=== PATIENT | male | born 1960 | race Caucasian/White ===

== ENCOUNTER 2016-04-27 21:27 | Emergency (ER) | payer MEDICAID ==
[2016-04-27 21:51] VITALS: BP 175/105
--- NOTE | 2016-04-27 22:10 | EDM.PDOC ---
ED HPI GENERAL MEDICAL PROBLEM - General Chief Complaint: General Stated Complaint: S/P SURGERY-CONSTIPATION Time Seen by Provider: 04/27/16 21:30 Source of Information: Reports: Patient History Limitations: Reports: No limitations - History of Present Illness INITIAL COMMENTS - FREE TEXT/NARRATIVE: 56 YO WM presents to ER s/p inguinal hernia repair 4 days ago complaining of constipation. Pt reports he has had a BM 2 days ago (small) and has been passing gas, but today after eating lunch he developed an urge to move his bowels and was unable. Pt went to clinic and was given doculax and colace and instructed to drink warm prune juice. Pt came to ER tonight stating he still can 't move his bowels and has noticed some hesitancy with urination. Pt denies any dysuria or frequency. Pt denies any abdominal pain at this time. Onset: gradual Duration: Day(s): (4) Location: Reports: abdomen Associated Symptoms: Reports: no other symptoms. Denies: chest pain, fever/ chills, loss of appetite, nausea/vomiting, shortness of breath Abdomen Pain Score (Numeric/FACES): 3 - Related Data Home Meds: Home Meds Polyethylene Glycol 3350 [MiraLAX] 17 gm PO BID 7 Days 04/27/16 [Rx] Past Medical History HEENT History: Reports: Impaired vision Cardiovascular History: Reports: Hypertension Genitourinary History: Reports: Retention, urinary - Past Surgical History GI Surgical History: Reports: Appendectomy, Hernia repair/other Other GI Surgeries/Procedures: umbilical hernia repair 04/23/16 Social & Family History - Tobacco Use Smoking Status *Q: Never Smoker Second Hand Smoke Exposure: No - Caffeine Use Caffeine Use: Reports: Soda - Alcohol Use Days Per Week of Alcohol Use: 7 Number of Drinks Per Day: 2 Total Drinks Per Week: 14 - Recreational Drug Use Recreational Drug Use: No ED ROS GENERAL - Review of Systems Review Of Systems: See Below Constitutional: Reports: no symptoms HEENT: Reports: No symptoms Respiratory: Reports: no symptoms Cardiovascular: Reports: No symptoms Endocrine: Reports: no symptoms GI/Abdominal: Reports: Constipation : Reports: other Skin: Reports: no symptoms Neurological: Reports: no symptoms Psychiatric: Reports: No symptoms Hematologic/Lymphatic: Reports: no symptoms Immunologic: Reports: no symptoms ED EXAM, GENERAL - Physical Exam Exam: See Below Exam Limited By: No limitations General Appearance: alert, WD/WN, no apparent distress Head: atraumatic, normocephalic Neck: normal inspection, supple, non-tender, full range of motion Respiratory/Chest: no respiratory distress, lungs clear, normal breath sounds, no accessory muscle use, chest non-tender Cardiovascular: normal peripheral pulses, regular rate, rhythm, no edema, no gallop, no JVD, no murmur, no rub GI/Abdominal: soft, distended, tender (mild tenderness at surgical site) Back Exam: normal inspection, full range of motion, NT Extremities: normal inspection, normal range of motion, non-tender, normal capillary refill, no pedal edema Neurological: alert, oriented, CN II-XII intact, normal cognition, normal gait, normal reflexes, no motor/sensory deficits Psychiatric: normal affect, normal mood Skin Exam: Warm, Dry, Intact, Normal color, No rash Lymphatic: no adenopathy Course - Vital Signs Last Recorded V/S: Last Vital Signs Temp 36.9 C 04/27/16 21:44 Pulse 116 H 04/27/16 21:44 Resp 16 04/27/16 21:44 BP 175/105 H 04/27/16 21:44 Pulse Ox 95 04/27/16 21:44 - Orders/Labs/Meds Orders: Active Orders 24 hr Category Date Time Status Bladder Scan [RC] ONETIME Care 04/27/16 22:02 Ordered Insert Urinary Catheter [OM.PC] Q24H Care 04/27/16 22:45 Ordered Urinary Catheter Assessment [RC] ASDIRECTED Care 04/27/16 22:33 Ordered KUB [Abdomen 1V Flat] [CR] Stat Exams 04/27/16 22:10 Ordered URINALYSIS W/MICROSCOPIC [UA W/MICROSCOPIC] [URIN] Stat Lab 04/27/16 22:33 Uncollected Meds: Medications Discontinued Medications Generic Name Dose Route Start Last Admin Trade Name Freq PRN Reason Stop Dose Admin Lidocaine HCl Confirm 04/27/16 22:20 Xylocaine 2% Jelly Administered 04/27/16 22:21 Dose 5 ml .ROUTE .STK-MED ONE - Radiology Interpretation Free Text/Narrative:: KUB- nonspecific bowel gas pattern bladder scan- >700cc post void residual Departure - Departure Time of Disposition: 22:34 Disposition: Home, Self-Care 01 Condition: good Clinical Impression: Postoperative urinary retention Constipation Qualifiers: Constipation type: slow transit constipation Qualified Code(s): K59.01 - Slow transit constipation Prescriptions: Polyethylene Glycol 3350 [MiraLAX] 17 gm PO BID 7 Days Instructions: Acute Urinary Retention, Male, Constipation, Adult Referrals: Connie Wilson PA-C [Primary Care Provider] - Forms: ED Department Discharge - My Orders Last 24 Hours: My Active Orders 04/27/16 22:02 Bladder Scan [RC] ONETIME 04/27/16 22:10 KUB [Abdomen 1V Flat] [CR] Stat 04/27/16 22:33 Urinary Catheter Assessment [RC] ASDIRECTED URINALYSIS W/MICROSCOPIC [UA W/MICROSCOPIC] [URIN] Stat 04/27/16 22:45 Insert Urinary Catheter [OM.PC] Q24H - Assessment/Plan Last 24 Hours: My Active Orders 04/27/16 22:02 Bladder Scan [RC] ONETIME 04/27/16 22:10 KUB [Abdomen 1V Flat] [CR] Stat 04/27/16 22:33 Urinary Catheter Assessment [RC] ASDIRECTED URINALYSIS W/MICROSCOPIC [UA W/MICROSCOPIC] [URIN] Stat 04/27/16 22:45 Insert Urinary Catheter [OM.PC] Q24H Assessment:: 1. urinary retention- >700cc urine as post void residual 2. constipation- KUB- nonspecific bowel gas pattern Plan: 1. keen catheter 2. miralax for consipation 3. follow up at [facility] tomorrow at 2pm as scheduled for keen cath removal/management 4. will check a UA to rule out infectious process
[2016-04-27] MEDS ORDERED: Lidocaine 2% Jelly 5 ML Tube ONE (22:20)
== END 2016-04-27 22:35 | disposition home or self-care (01) ==
LOC: KA.ED 21:27
DX: K59.01 Slow transit constipation (principal); N99.89 Other postprocedural complications and disorders of genitourinary system; R33.9 Retention of urine, unspecified; I10 Essential (primary) hypertension; Z90.49 Acquired absence of other specified parts of digestive tract; Z98.890 Other specified postprocedural states
CPT/HCPCS: 51798; 74000; 81001; 99283

== ENCOUNTER 2019-01-01 17:27 | Emergency (ER) | payer MEDICAID ==
[2019-01-01] MEDS: Nitroglycerin 0.4 MG Tab.SL SL ONE (17:35)
[2019-01-01] MEDS: Aspirin 81 MG Tab.Chew PO ONE (17:35)
--- NOTE | 2019-01-01 18:02 | EDM.PDOC ---
<Adrian White - Last Filed: 01/01/19 20:17> ED HPI GENERAL MEDICAL PROBLEM - General Chief Complaint: Cardiovascular Problem Stated Complaint: CHEST PAIN Time Seen by Provider: 01/01/19 17:28 Source of Information: Reports: Patient History Limitations: Reports: No Limitations - History of Present Illness INITIAL COMMENTS - FREE TEXT/NARRATIVE: 58-year-old male presents to the emergency room brought in by his mother with complaints of chest pain. Patient reports pain started approximately at 1430 this afternoon he describes the pain as pressure over his chest. He rates it a 5 out of 10 in severity. He denies any radiation to his neck, shoulder, arm, back, jaw, or abdomen. He has no nausea or vomiting. He's not been sweaty or diaphoretic. He denies palpitations or irregular heartbeat. Reports the pressure in his chest wall wax and wane but does not go away. He has not taken anything for it at the time of his onset. He does have a history of high blood pressure and takes blood pressure medication for this. He denies high cholesterol. He denies prior history of heart attack. He denies stroke history. He denies diabetes. He denies shortness of breath dyspnea on exertion, or PND. He has never had a history of chest pain prior to today. He does not recall having a stress test in the past. He was given a 325 mg aspirin to chew upon arrival in 0.4 mg sublingual nitroglycerin. His chest pain improved after the nitroglycerin. He rates his chest pain a 3 out of 10. Onset: Today, Sudden Onset Date: 01/01/19 Onset Time: 14:30 Duration: Hour(s):, Waxing/Waning Location: Reports: Chest Quality: Reports: Pressure Severity: Moderate Improves with: Reports: None Worsens with: Reports: None Associated Symptoms: Reports: Chest Pain. Denies: Diaphoresis, Headaches, Nausea/Vomiting, Shortness of Breath, Syncope, Weakness Treatments HIDE HANDLER: Reports: Other Medication(s) (Home blood pressure medication) Middle Chest Pain Score (Numeric/FACES): 5 - Related Data Allergies Allergy/AdvReac Type Severity Reaction Status Date / Time No Known Allergies Allergy Verified 04/28/16 09:37 Home Meds: Home Meds Losartan Potassium 75 mg PO DAILY 01/01/19 [History] Omeprazole 40 mg PO DAILY PRN 01/01/19 [History] Past Medical History HEENT History: Reports: Impaired Vision Cardiovascular History: Reports: Hypertension Genitourinary History: Reports: Retention, Urinary - Past Surgical History GI Surgical History: Reports: Appendectomy, Hernia Repair/Other Social & Family History - Caffeine Use Caffeine Use: Reports: Soda ED ROS GENERAL - Review of Systems Review Of Systems: See Below Constitutional: Denies: Weakness, Diaphoresis HEENT: Reports: No Symptoms Respiratory: Denies: Shortness of Breath, Pleuritic Chest Pain, Cough Cardiovascular: Reports: Chest Pain, Blood Pressure Problem. Denies: Dyspnea on Exertion, Edema, Lightheadedness, Orthopnea, Palpitations, PND, Syncope Endocrine: Reports: No Symptoms GI/Abdominal: Reports: No Symptoms : Reports: No Symptoms Musculoskeletal: Denies: Neck Pain, Shoulder Pain, Arm Pain, Back Pain Skin: Denies: Diaphoresis Neurological: Denies: Headache, Numbness, Paresthesia, Pre-Existing Deficit, Seizure, Syncope, Tingling, Tremors, Trouble Speaking, Difficulty Walking, Change in Speech, Gait Disturbance Psychiatric: Denies: Agitation, Anxiety Hematologic/Lymphatic: Reports: No Symptoms Immunologic: Reports: No Symptoms ED EXAM, GENERAL - Physical Exam Exam Limited By: No Limitations General Appearance: Alert, No Apparent Distress, Obese Eye Exam: Bilateral Eye: EOMI, PERRL Ears: Normal TMs Nose: Normal Inspection Throat/Mouth: Normal Oropharynx, Normal Voice, No Airway Compromise Head: Atraumatic, Normocephalic Neck: Normal Inspection, Supple, Non-Tender, Full Range of Motion. No: Carotid Bruit, Lymphadenopathy (L), Lymphadenopathy (R) Respiratory/Chest: No Respiratory Distress, Lungs Clear, Normal Breath Sounds, No Accessory Muscle Use, Chest Non-Tender Cardiovascular: Normal Peripheral Pulses, Regular Rate, Rhythm, No Edema, No JVD , No Murmur Peripheral Pulses: 2+: Carotid (L), Carotid (R), Radial (L), Radial (R), Dorsalis Pedis (L), Dorsalis Pedis (R) GI/Abdominal: Normal Bowel Sounds, Soft, Non-Tender, No Abnormal Bruit, Other ( Obese abdomen) Back Exam: Normal Inspection, Full Range of Motion Extremities: Normal Inspection, Normal Range of Motion, Non-Tender, No Pedal Edema, Normal Capillary Refill Neurological: Alert, Oriented, No Motor/Sensory Deficits Psychiatric: Normal Affect, Normal Mood Skin Exam: Warm, Dry, Intact, Normal Color, No Rash. No: Diaphoretic Lymphatic: No Adenopathy EKG INTERPRETATION EKG Date: 01/01/19 Time: 17:29 Rhythm: Other (First-degree AV block) Rate (Beats/Min): 79 [place]: Normal P-Wave: Present QRS: Normal QT: Normal Comparison: NA - No Prior EKG EKG Interpretation Comments: Sinus rhythm with first-degree AV block Inferior infarct age undetermined abnormal ECG Course - Vital Signs Last Recorded V/S: Last Vital Signs Temp 36.7 C 01/01/19 17:35 Pulse 72 01/01/19 20:00 Resp 17 01/01/19 17:35 BP 128/72 01/01/19 20:00 Pulse Ox 98 01/01/19 17:35 - Orders/Labs/Meds Orders: Active Orders 24 hr Category Date Time Status EKG Documentation Completion [RC] ASDIRECTED Care 01/01/19 19:56 Active TROPONIN I [CHEM] Timed Lab 01/01/19 18:25 Received Sodium Chloride 0.9% [Normal Saline] 1,000 ml Med 01/01/19 20:00 Active IV ASDIRECTED EKG 12 Lead [EK] Routine Ther 01/01/19 20:30 Ordered Medication Orders Sodium Chloride (Normal Saline) 1,000 mls @ 150 mls/hr IV ASDIRECTED YFN Last Admin: 01/01/19 20:07 Dose: 150 mls/hr Labs: Laboratory Tests 01/01/19 01/01/19 Range/Units 18:20 18:47 WBC 10.37 H (5.00-10.00) 10^3/uL RBC 4.84 (4.50-6.00) 10^6/uL Hgb 15.9 (13.0-17.0) g/dL Hct 43.4 (40.0-52.0) % MCV 89.7 (82.0-92.0) fL MCH 32.9 H (27.0-31.0) pg MCHC 36.6 H (32.0-36.0) g/dL RDW 12.3 (11.5-14.5) % Plt Count 276 (150-400) 10^3/uL MPV 9.1 (7.4-10.4) fL Immature Gran % (Auto) 0.5 (0.0-5.0) % Neut % (Auto) 75.5 H (50.0-70.0) % Lymph % (Auto) 14.2 L (20.0-40.0) % [place] % (Auto) 7.3 (2.0-8.0) % Eos % (Auto) 2.1 (1.0-3.0) % Baso % (Auto) 0.4 (0.0-1.0) % Immature Gran # (Auto) 0.05 (0.00-0.50) 10^3/uL Neut # (Auto) 7.83 H (2.50-7.00) 10^3/uL Lymph # (Auto) 1.47 (1.00-4.00) 10^3/uL [place] # (Auto) 0.76 (0.10-0.80) 10^3/uL Eos # (Auto) 0.22 (0.10-0.30) 10^3/uL Baso # (Auto) 0.04 (0.00-0.10) 10^3/uL Sodium 141 (136-145) mmol/L Potassium 3.7 (3.3-5.3) mmol/L Chloride 105 (98-115) mmol/L Carbon Dioxide 23.0 (21.0-32.0) mmol/L Anion Gap 16.7 H (5-15) mmol/L BUN 13 (6-25) mg/dL Creatinine 0.96 (0.51-1.17) mg/dL Est Cr Clr Drug Dosing 84.49 mL/min Estimated GFR (MDRD) > 60 mL/min Glucose 97 (75 - 99) mg/dL Calcium 9.9 (8.7-10.3) mg/dL Creatine Kinase 96 (26-276) U/L CK-MB (CK-2) 0.90 (0.00-4.30) ng/mL Troponin I 0.08 H* (0.00-0.070) ng/mL Meds: Medications Generic Name Dose Route Start Last Admin Trade Name Freq PRN Reason Stop Dose Admin Sodium Chloride 1,000 mls @ 150 mls/hr 01/01/19 20:00 01/01/19 20:07 Normal Saline IV 150 mls/hr ASDIRECTED YFN Administration Discontinued Medications Generic Name Dose Route Start Last Admin Trade Name Desiree JACKSONN Reason Stop Dose Admin Aspirin Confirm 01/01/19 17:32 01/01/19 18:16 Aspirin Administered 01/01/19 17:33 Not Given Dose 324 mg .ROUTE .STK-MED ONE Aspirin 324 mg 01/01/19 18:11 01/01/19 17:35 Aspirin PO 01/01/19 18:12 324 mg ONETIME ONE Administration Nitroglycerin Confirm 01/01/19 17:34 01/01/19 18:16 Nitrostat Administered 01/01/19 17:35 Not Given Dose 0.4 mg .ROUTE .STK-MED ONE Nitroglycerin 0.4 mg 01/01/19 17:36 01/01/19 17:35 Nitrostat SL 01/01/19 17:37 0.4 mg ONETIME ONE Administration - Re-Assessments/Exams Free Text/Narrative Re-Assessment/Exam: 01/01/19 18:11 Chest pain upon arrival was 5 out of 10 and describes as pressure. Patient was given 0.4 mg sublingual nitroglycerin and now his pain as a 3 out of 10. Free Text/Narrative Re-Assessment/Exam: 01/01/19 18:14 She now reports that his pain is down to a 1 out of 10. Free Text/Narrative Re-Assessment/Exam: 01/01/19 19:59 Discussed the findings with cardiology at [facility]. We'll plan on repeating his troponin at 8:30 as well as a new EKG. If troponin is elevated or plan on transferring the patient to [facility]. Departure - Departure Disposition: DC/Tfer to [facility] 02 Clinical Impression: Angina pectoris syndrome Referrals: Chet Merritt NP [Primary Care Provider] - Forms: ED Department Discharge, Interfacility Transfer EMTALA - Assessment/Plan Assessment:: Angina pectoris Plan: Repeat troponin at 8:30 Repeat EKG at 8:30. <Faraz Scott - Last Filed: 01/01/19 21:21> ED EXAM, GENERAL - Physical Exam Exam: See Below Exam Limited By: No Limitations General Appearance: Alert, WD/WN, No Apparent Distress Departure - Departure Time of Disposition: 21:19 Reason for Transfer *Q: Other Condition: Fair - Assessment/Plan Plan: transfer to [facility]- patient request- stable angina- Dr Murphy accepting
[2019-01-01] MEDS: Aspirin 81 MG Tab.Chew ONE (18:16)
[2019-01-01] MEDS: Nitroglycerin 0.4 MG Tab.SL ONE (18:16)
[2019-01-01 19:01] LABS: ANION GAP 16.7 mmol/L (5-15); CHLORIDE,CL 105 mmol/L (98-115); SODIUM,NA 141 mmol/L (136-145)
--- NOTE | 2019-01-01 19:25 | CR ---
[id number] RAD/RAD Chest PA or AP 1V EXAM: SINGLE VIEW CHEST. INDICATION: CHEST PAIN COMPARISON: NO PREVIOUS SIMILAR EXAM IS AVAILABLE FINDINGS: The lungs are clear The cardiomediastinal contour is mildly prominent IMPRESSION: NO PNEUMONIA OR EDEMA EARLY CARDIOMEGALY QUESTION OF AIR TRAPPING Enrique Oliva MD 01/01/19 1923 Thank you for allowing us to participate in the care of your patient.
[2019-01-01] MEDS: Sodium Chloride 0.9% 1,000 ML IV SCH (20:07)
[2019-01-01 20:18] VITALS: PULSE 72
[2019-01-01 21:09] VITALS: BP 135/68
== END 2019-01-01 22:00 ==
LOC: KA.ED 17:27
DX: I20.9 Angina pectoris, unspecified (principal); I10 Essential (primary) hypertension; Z79.899 Other long term (current) drug therapy
CPT/HCPCS: 36415; 71045; 80048; 82550; 82553; 84484; 85025; 93005; 99285-25; A9270-GY; J7030

== ENCOUNTER 2019-12-28 17:16 | Inpatient (IN) | payer MEDICAID ==
[2019-12-28] MEDS ORDERED: Sodium Chloride 0.9% 1,000 ML IV ONE ×2 (17:24→20:08)
[2019-12-28] MEDS ORDERED: Sodium Chloride 0.9% 10 ML Syringe FLUSH PRN ×2 (17:24→23:17)
[2019-12-28] MEDS ORDERED: Aspirin 81 MG Tab.Chew PO ONE (17:24)
[2019-12-28] MEDS ORDERED: Aspirin 81 MG Tab.Chew ONE (17:24)
[2019-12-28] MEDS ORDERED: Nitroglycerin 0.4 MG Tab.SL SL ONE ×2 (17:28→19:52)
[2019-12-28] MEDS ORDERED: Morphine 4 MG/ML Syringe IVPUSH ONE (17:28)
--- NOTE | 2019-12-28 17:28 | EDM.PDOC ---
ED HPI GENERAL MEDICAL PROBLEM - General Time Seen by Provider: 12/28/19 17:21 Source of Information: Reports: Patient History Limitations: Reports: No Limitations - History of Present Illness INITIAL COMMENTS - FREE TEXT/NARRATIVE: Presents emergency room with chest pain started at 4:30 pm while he was mowing lawn , he was not underneath strenuous activity as he was riding the riding lawn more. He went inside and took 3 nitroglycerin with no pain relief. He does have history of chest pain year ago had a full work-up stress test which came out normal. Despite having a positive troponin. Patient arrives with 5 out of 10 chest pain center no radiation associated with some diaphoresis. The chest pain is described as an ache with no radiation or associated symptoms. Patient has history of hypertension GERD and hyperlipidemia. Denies any history of smoking. Middle Chest Pain Score (Numeric/FACES): 3 - Related Data Allergies Allergy/AdvReac Type Severity Reaction Status Date / Time pollens Allergy Hives Uncoded 12/28/19 17:56 Home Meds: Home Meds Losartan Potassium 75 mg PO DAILY 01/01/19 [History] Omeprazole 40 mg PO DAILY PRN 01/01/19 [History] Aspirin 81 mg PO DAILY 12/28/19 [History] Past Medical History HEENT History: Reports: Impaired Vision Cardiovascular History: Reports: Hypertension Respiratory History: Reports: None Gastrointestinal History: Reports: None Genitourinary History: Reports: Retention, Urinary Musculoskeletal History: Reports: None Neurological History: Reports: None Psychiatric History: Reports: None Endocrine/Metabolic History: Reports: Obesity/BMI 30+ Hematologic History: Reports: None Immunologic History: Reports: None Oncologic (Cancer) History: Reports: None Dermatologic History: Reports: None - Infectious Disease History Infectious Disease History: Reports: Chicken Pox, Measles Social & Family History - Family History Family Medical History: Noncontributory - Caffeine Use Caffeine Use: Reports: Soda ED ROS GENERAL - Review of Systems Review Of Systems: Comprehensive ROS is negative, except as noted in HPI. Constitutional: Reports: Diaphoresis Cardiovascular: Reports: Chest Pain ED EXAM, GENERAL - Physical Exam Exam: See Below General Appearance: Alert, WD/WN, No Apparent Distress Nose: Normal Inspection Throat/Mouth: Normal Inspection, Normal Oropharynx Head: Atraumatic, Normocephalic Neck: Normal Inspection, Supple, Non-Tender Respiratory/Chest: No Respiratory Distress, Lungs Clear, Normal Breath Sounds Cardiovascular: Normal Peripheral Pulses, Regular Rate, Rhythm, No Murmur Peripheral Pulses: 2+: Radial (L), Radial (R), Posterior Tibial (L), Posterior Tibial (R), Dorsalis Pedis (L), Dorsalis Pedis (R) GI/Abdominal: Normal Bowel Sounds, Soft, Non-Tender Back Exam: Normal Inspection, Full Range of Motion Extremities: Normal Inspection, Normal Range of Motion Neurological: Alert, Oriented Psychiatric: Normal Affect, Normal Mood Skin Exam: Warm, Dry, Intact. No: Diaphoretic #1 Interpretation EKG Date: 12/28/19 Time: 17:21 Rhythm: NSR [place]: LAD-Left [place] Deviation P-Wave: Present QRS: Normal (No change from previous EKG [address]-T: Normal QT: Normal Comparison: No Change (No change from previous) #2 Interpretation EKG Date: 12/28/19 Time: 19:50 Rhythm: NSR [place]: Normal QRS: Normal ST-T: Normal QT: Normal Comparison: No Change Course - Vital Signs Last Recorded V/S: Last Vital Signs Temp 98.3 F 12/28/19 19:02 Pulse 65 12/28/19 20:19 Resp 18 12/28/19 20:19 BP 125/68 12/28/19 20:19 Pulse Ox 99 12/28/19 20:19 - Orders/Labs/Meds Orders: Active Orders 24 hr Category Date Time Status EKG Documentation Completion [RC] ASDIRECTED Care 12/28/19 19:44 Active Chest w Cont [CT] Stat Exams 12/28/19 21:05 Ordered TROPONIN I [CHEM] Stat Lab 12/28/19 22:45 Ordered Sodium Chloride 0.9% [Normal Saline] 100 ml Med 12/28/19 22:15 Active IV ASDIRECTED Sodium Chloride 0.9% [Saline Flush] Med 12/28/19 17:24 Active 10 ml FLUSH Q8HR PRN Saline Lock Insert [OM.PC] Routine Oth 12/28/19 17:24 Ordered EKG 12 Lead [EK] Stat Ther 12/28/19 19:44 Ordered Medication Orders Sodium Chloride (Normal Saline) 100 mls @ 200 mls/hr IV ASDIRECTED YFN Sodium Chloride (Saline Flush) 10 ml FLUSH Q8HR PRN PRN Reason: keep vein open Labs: Laboratory Tests 12/28/19 12/28/19 12/28/19 Range/Units 17:23 17:23 17:25 WBC 16.13 H (5.00-10.00) 10^3/uL RBC 5.23 (4.50-6.00) 10^6/uL Hgb 15.4 (13.0-17.0) g/dL Hct 45.3 (40.0-52.0) % MCV 86.6 D (82.0-92.0) fL MCH 29.4 (27.0-31.0) pg MCHC 34.0 (32.0-36.0) g/dL RDW 12.6 (11.5-14.5) % Plt Count 378 D (150-400) 10^3/uL MPV 9.1 (7.4-10.4) fL D-Dimer, Quantitative 581 H (<400) ng/mL Sodium 135 L (136-145) mmol/L Potassium 3.8 (3.3-5.3) mmol/L Chloride 99 (98-115) mmol/L Carbon Dioxide 25.4 (21.0-32.0) mmol/L Anion Gap 14.4 (5-15) mmol/L BUN 16 (6-25) mg/dL Creatinine 1.31 H (0.51-1.17) mg/dL Est Cr Clr Drug Dosing 59.22 mL/min Estimated GFR (MDRD) 56 mL/min Glucose 126 H (75 - 99) mg/dL Calcium 9.3 (8.7-10.3) mg/dL Total Bilirubin 0.3 (0.2-1.0) mg/dL AST 15 (15-37) U/L ALT 31 (12-78) U/L Alkaline Phosphatase 87 (46-116) IU/L Troponin I < 0.04 (0.00-0.070) ng/mL C-Reactive Protein (0.0-0.9) mg/dL B-Natriuretic Peptide 58 (0-100) pg/mL Total Protein 7.7 (6.4-8.2) g/dL Albumin 3.85 (3.00-4.80) g/dL 12/28/19 12/28/19 Range/Units 18:51 18:51 WBC (5.00-10.00) 10^3/uL RBC (4.50-6.00) 10^6/uL Hgb (13.0-17.0) g/dL Hct (40.0-52.0) % MCV (82.0-92.0) fL MCH (27.0-31.0) pg MCHC (32.0-36.0) g/dL RDW (11.5-14.5) % Plt Count (150-400) 10^3/uL MPV (7.4-10.4) fL D-Dimer, Quantitative (<400) ng/mL Sodium (136-145) mmol/L Potassium (3.3-5.3) mmol/L Chloride (98-115) mmol/L Carbon Dioxide (21.0-32.0) mmol/L Anion Gap (5-15) mmol/L BUN (6-25) mg/dL Creatinine (0.51-1.17) mg/dL Est Cr Clr Drug Dosing mL/min Estimated GFR (MDRD) mL/min Glucose (75 - 99) mg/dL Calcium (8.7-10.3) mg/dL Total Bilirubin (0.2-1.0) mg/dL AST (15-37) U/L ALT (12-78) U/L Alkaline Phosphatase (46-116) IU/L Troponin I 0.05 (0.00-0.070) ng/mL C-Reactive Protein 0.9 (0.0-0.9) mg/dL B-Natriuretic Peptide (0-100) pg/mL Total Protein (6.4-8.2) g/dL Albumin (3.00-4.80) g/dL Meds: Medications Generic Name Dose Route Start Last Admin Trade Name Freq PRN Reason Stop Dose Admin Sodium Chloride 100 mls @ 200 mls/hr 12/28/19 22:15 Normal Saline IV ASDIRECTED YFN Sodium Chloride 10 ml 12/28/19 17:24 Saline Flush FLUSH Q8HR PRN keep vein open Discontinued Medications Generic Name Dose Route Start Last Admin Trade Name Freq PRN Reason Stop Dose Admin Al Hydroxide/Mg Hydroxide 30 ml 12/28/19 18:14 11/05/20 18:24 Mag-Al Plus PO 11/05/20 18:15 30 ml ONETIME ONE Administration Aspirin 243 mg 12/28/19 17:24 12/28/19 17:38 Aspirin PO 12/28/19 17:25 243 mg ONETIME ONE Administration Aspirin Confirm 12/28/19 17:24 12/28/19 17:39 Aspirin Administered 12/28/19 17:25 Not Given Dose 243 mg .ROUTE .STK-MED ONE Sodium Chloride 1,000 mls @ 999 mls/hr 12/28/19 17:24 12/28/19 17:39 Normal Saline IV 12/28/19 18:24 999 mls/hr .BOLUS ONE Administration Sodium Chloride Confirm 12/28/19 20:04 12/28/19 20:08 Normal Saline Administered 12/28/19 20:05 Not Given Dose 1,000 mls @ as directed .ROUTE .STK-MED ONE Sodium Chloride 1,000 mls @ 999 mls/hr 12/28/19 20:08 12/28/19 19:53 Normal Saline IV 12/28/19 21:08 999 mls/hr .BOLUS ONE Administration Iopamidol 100 ml 12/28/19 22:13 Isovue-370 (76%) IV 12/28/19 22:14 ONETIME ONE Morphine Sulfate 4 mg 12/28/19 17:28 12/28/19 17:33 Morphine IVPUSH 12/28/19 17:29 2 mg ONETIME ONE Administration Morphine Sulfate Confirm 12/28/19 17:32 12/28/19 17:39 Morphine Administered 12/28/19 17:33 Not Given Dose 4 mg .ROUTE .STK-MED ONE Nitroglycerin 0.4 mg 12/28/19 17:28 12/28/19 17:33 Nitrostat SL 12/28/19 17:29 0.4 mg ONETIME ONE Administration Nitroglycerin 0.4 mg 12/28/19 19:52 12/28/19 19:55 Nitrostat SL 12/28/19 19:53 0.4 mg ONETIME ONE Administration - Re-Assessments/Exams Free Text/Narrative Re-Assessment/Exam: 12/28/19 22:37 Given 2 doses of nitroglycerin towards ER stay patient became slightly hypotension diaphoretic but his blood pressure came back up after the nitroglycerin wore off. Nitroglycerin really did not help his pain. He still complains of 4 out of 10 chest ache center of his chest. No associated symptoms. EKG repeated when the troponin was at 0.05. not above normal range. No change in EKG no ST elevation. I did consult on-call [facility] provider. I did consult the production stage manager at [facility] to review the EKGs and the plan of care. The production stage manager suggested doing a D-dimer and if D-dimer is elevated due to CT scan of the chest. Patient has history of no PE risk factors however he does have chest pain. And he did have history of ascending dilated aorta. In which he needed to have repeat CT chest scan done in December. D-dimer is elevated CT scan chest ordered 18-gauge IV was placed in his antecubital region. 12/28/19 22:43 Blood pressure in the left arm is 144/83 pulse 89 blood pressure on the right arm is 131/73 pulse 92. 12/28/19 22:45 repeat troponin after 4 hours per PCP request. 12/28/19 23:19 BC added with differential at 11:00 repeat troponin 11:00 as well. Patient has 2 out of 10 chest ache center chest no radiation pain has not changed. Repeat abdominal exam negative Pedroza sign despite having some may be gallbladder changes noted on the CT scan. Admitted to observation 1 dose of Aleve given with some applesauce. Saline locked COVID-19 test was collected per protocol to remote telemetry. Staff will notify on-call provider if elevation in troponin. Departure - Departure Time of Disposition: 23:17 Disposition: Refer to Observation Condition: Good Clinical Impression: Atypical chest pain Referrals: Chet Merritt WELLNESS DIRECTOR [Primary Care Provider] - Sepsis Event Note (ED) - Focused Exam Vital Signs: Vital Signs Temp Pulse Resp BP BP Pulse Ox 12/28/19 20:19 65 18 125/68 99 12/28/19 20:07 69 18 104/60 98 12/28/19 20:00 86/41 L 12/28/19 19:55 151/84 H 12/28/19 19:53 74 151/84 H 12/28/19 19:02 98.3 F 81 20 139/82 98 12/28/19 18:55 98.3 F 85 20 139/82 97 12/28/19 17:46 56 L 16 114/66 97 12/28/19 17:45 97 F 67 14 155/90 H 100 12/28/19 17:43 55 L 16 95/56 L 98 12/28/19 17:36 72 13 109/62 97 12/28/19 17:33 139/87 12/28/19 17:30 63 16 139/87 99 - My Orders Last 24 Hours: My Active Orders 12/28/19 17:24 Sodium Chloride 0.9% [Saline Flush] 10 ml FLUSH Q8HR PRN Saline Lock Insert [OM.PC] Routine 12/28/19 19:44 EKG Documentation Completion [RC] ASDIRECTED EKG 12 Lead [EK] Stat 12/28/19 21:05 Chest w Cont [CT] Stat 12/28/19 22:15 Sodium Chloride 0.9% [Normal Saline] 100 ml IV ASDIRECTED 12/28/19 22:45 TROPONIN I [CHEM] Stat - Assessment/Plan Last 24 Hours: My Active Orders 12/28/19 17:24 Sodium Chloride 0.9% [Saline Flush] 10 ml FLUSH Q8HR PRN Saline Lock Insert [OM.PC] Routine 12/28/19 19:44 EKG Documentation Completion [RC] ASDIRECTED EKG 12 Lead [EK] Stat 12/28/19 21:05 Chest w Cont [CT] Stat 12/28/19 22:15 Sodium Chloride 0.9% [Normal Saline] 100 ml IV ASDIRECTED 12/28/19 22:45 TROPONIN I [CHEM] Stat
[2019-12-28] MEDS ORDERED: Morphine 4 MG/ML VIAL ONE (17:32)
[2019-12-28 18:00] LABS: ANION GAP 14.4 mmol/L (5-15); CHLORIDE,CL 99 mmol/L (98-115); SODIUM,NA 135 mmol/L (136-145)
--- NOTE | 2019-12-28 18:00 | CR ---
[id number] RAD/RAD Chest PA or AP 1V EXAM: SINGLE VIEW CHEST. INDICATION: CHEST PAIN COMPARISON: CORRELATION IS MADE WITH JANUARY 01, 2019 FINDINGS: The lungs are clear The cardiomediastinal contour is prominent but stable IMPRESSION: NO PNEUMONIA OR EDEMA Enrique Oliva MD 12/28/19 [id number] Thank you for allowing us to participate in the care of your patient.
[2019-12-28] MEDS ORDERED: Aluminum Hydroxide/Magnesium Hydroxide/Simethicone Susp 30 ML Cup PO ONE (18:14)
[2019-12-28] MEDS ORDERED: Sodium Chloride 0.9% 1,000 ML ONE (20:04)
[2019-12-28] MEDS ORDERED: Iopamidol 755 Mg/ML 100 ML Bottle IV ONE (22:13)
[2019-12-28] MEDS ORDERED: Sodium Chloride 0.9% 100 ML IV SCH (22:15)
[2019-12-29] MEDS ORDERED: cefTRIAXone 1 GM Vial IVPUSH ONE (01:10)
[2019-12-29] MEDS ORDERED: Azithromycin 500 MG in Sodium Chloride 0.9% 250 ML IV ONE (01:11)
[2019-12-29] MEDS: Acetaminophen 325 MG Tab PO PRN ×3 (01:45→20:03)
[2019-12-29] MEDS: Sodium Chloride 0.9% 1,000 ML IV SCH ×5 (03:00→23:41)
--- NOTE | 2019-12-29 08:13 | CT ---
[id number] CT/CTA Chest Exam: CTA Chest Clinical Data: ELEVATED D-DIMER CHEST PAIN COMPARISON: NO PREVIOUS SIMILAR EXAM IS AVAILABLE FINDINGS: There are no pulmonary emboli There is no mediastinal mass or adenopathy The thoracic aorta is prominent The ascending thoracic artery measures 5 cm in diameter There is no pulmonary parenchymal infiltrate or mass There are no effusions Gallstones are present IMPRESSION: NO PULMONARY EMBOLI CHOLECYSTOLITHIASIS Enrique Oliva MD 12/29/19 [id number] Thank you for allowing us to participate in the care of your patient.
[2019-12-29 08:23] LABS: ANION GAP 18.5 mmol/L (5-15); CHLORIDE,CL 105 mmol/L (98-115); SODIUM,NA 141 mmol/L (136-145)
[2019-12-29] MEDS ORDERED: Sodium Chloride 0.9% 1,000 ML IV ONE (10:21)
[2019-12-29] MEDS ORDERED: Omeprazole 20 MG Cap.CR PO PRN (10:38)
--- NOTE | 2019-12-29 10:58 | PCM.HP.2 ---
H&P History of Present Illness - General Date of Service: 12/29/19 Admit Problem/Dx: Admission Diagnosis/Problem Admission Diagnosis/Problem Atypical chest pain Source of Information: Patient, Provider, RN Middle Chest Pain Score (Numeric/FACES): 2 - Related Data Allergies/Adverse Reactions: Allergies Allergy/AdvReac Type Severity Reaction Status Date / Time pollens Allergy Hives Uncoded 12/28/19 17:56 Home Medications: Home Meds Losartan Potassium 75 mg PO DAILY 01/01/19 [History] Omeprazole 40 mg PO DAILY PRN 01/01/19 [History] Aspirin 81 mg PO DAILY 12/28/19 [History] Past Medical History HEENT History: Reports: Impaired Vision Cardiovascular History: Reports: Hypertension Respiratory History: Reports: None Gastrointestinal History: Reports: None Genitourinary History: Reports: None Musculoskeletal History: Reports: None Neurological History: Reports: None Psychiatric History: Reports: None Endocrine/Metabolic History: Reports: Obesity/BMI 30+ Hematologic History: Reports: None Immunologic History: Reports: None Oncologic (Cancer) History: Reports: None Dermatologic History: Reports: None - Infectious Disease History Infectious Disease History: Reports: Chicken Pox, Measles - Past Surgical History Head Surgeries/Procedures: Reports: None Cardiovascular Surgical History: Reports: None GI Surgical History: Reports: Appendectomy, Hernia, Abdominal Social & Family History - Family History Family Medical History: Noncontributory - Tobacco Use Tobacco Use Status *Q: Never Tobacco User Second Hand Smoke Exposure: No - Caffeine Use Caffeine Use: Reports: Soda - Alcohol Use Date of Last Drink: 12/27/19 - Recreational Drug Use Recreational Drug Use: No H&P Review of Systems - Review of Systems: Review Of Systems: See Below General: Reports: Chills, Night Sweats, Diaphoresis. Denies: Fever, Weakness, F atigue, Decreased Appetite, Weight Loss HEENT: Reports: No Symptoms Pulmonary: Reports: Shortness of Breath, Pleuritic Chest Pain. Denies: Wheezing, Cough, Sputum Cardiovascular: Reports: Chest Pain, Lightheadedness, Blood Pressure Problem. Denies: Edema, Syncope, Claudication Gastrointestinal: Reports: No Symptoms Genitourinary: Denies: Dysuria, Frequency, Burning, Pain, Urgency, Flank Pain Musculoskeletal: Reports: No Symptoms Skin: Reports: No Symptoms Psychiatric: Reports: No Symptoms Neurological: Reports: No Symptoms Hematologic/Lymphatic: Denies: Swollen Glands Immunologic: Reports: No Symptoms Exam - Exam Exam: See Below - Vital Signs Vital Signs: Last Vital Signs Temp 97.0 F 12/29/19 06:50 Pulse 97 12/29/19 06:50 Resp 20 12/29/19 06:50 BP 93/55 L 12/29/19 06:50 Pulse Ox 98 12/29/19 06:50 Weight: 280 lb - Exam Quality Assessment: Supplemental Oxygen. No: Urinary Catheter, DVT Prophylaxis, Skin Breakdown General: Alert, Oriented, Mild Distress HEENT: Hearing Intact, Nares Patent, Posterior Pharynx Clear. No: Mucosa Moist & [place] Neck: Supple Lungs: Clear to Auscultation. No: Normal Respiratory Effort, Crackles, Rales, Rhonchi, Rub, Stridor, Wheezing Cardiovascular: Regular Rhythm, Normal S1, Normal S2, Tachycardia. No: Regular Rate, Systolic Murmur, Gallop/S3, Gallop/S4 GI/Abdominal Exam: Tender (tender right mid to upper quad abd. ). No: Rigid, Rebound, Mass, Hepatomegaly, Splenomegaly (Male) Exam: No: Rash Rectal (Males) Exam: Deferred. No: Black Stool, BPH Back Exam: No: CVA Tenderness (L), CVA Tenderness (R) Extremities: No Pedal Edema Peripheral Pulses: 3+: Radial (L), Radial (R) Skin: Warm, Dry, Intact Neurological: Cranial Nerves Intact, Normal Speech, Normal Tone, Sensation Intact Neuro Extensive - Mental Status: Alert, Oriented x3, Normal Mood/Affect, Normal Cognition Neuro Extensive - Motor, Sensory, Reflexes: CN II-XII Intact, Normal Gait, Normal Reflexes Psychiatric: Alert, Normal Affect, Normal Mood - Patient Data Lab Results Last 24 hrs: Laboratory Results - last 24 hr 12/28/19 12/28/19 12/28/19 Range/Units 17:23 17:23 17:25 WBC 16.13 H (5.00-10.00) 10^3/uL RBC 5.23 (4.50-6.00) 10^6/uL Hgb 15.4 (13.0-17.0) g/dL Hct 45.3 (40.0-52.0) % MCV 86.6 D (82.0-92.0) fL MCH 29.4 (27.0-31.0) pg MCHC 34.0 (32.0-36.0) g/dL RDW 12.6 (11.5-14.5) % Plt Count 378 D (150-400) 10^3/uL MPV 9.1 (7.4-10.4) fL Immature Gran % (Auto) (0.0-5.0) % Neut % (Auto) (50.0-70.0) % Lymph % (Auto) (20.0-40.0) % [place] % (Auto) (2.0-8.0) % Eos % (Auto) (1.0-3.0) % Baso % (Auto) (0.0-1.0) % Neut # (Auto) (2.50-7.00) 10^3/uL Lymph # (Auto) (1.00-4.00) 10^3/uL [place] # (Auto) (0.10-0.80) 10^3/uL Eos # (Auto) (0.10-0.30) 10^3/uL Baso # (Auto) (0.00-0.10) 10^3/uL Immature Gran # (Auto) (0.00-0.50) 10^3/uL Add Manual Diff Neutrophils % (Manual) (50-70) % Band Neutrophils % (4-12) % Lymphocytes % (Manual) (20-40) % Monocytes % (Manual) (2-8) % Absolute Neutrophils Band Neutrophils # Lymphocytes # (Manual) Monocytes # (Manual) D-Dimer, Quantitative 581 H (<400) ng/mL Sodium 135 L (136-145) mmol/L Potassium 3.8 (3.3-5.3) mmol/L Chloride 99 (98-115) mmol/L Carbon Dioxide 25.4 (21.0-32.0) mmol/L Anion Gap 14.4 (5-15) mmol/L BUN 16 (6-25) mg/dL Creatinine 1.31 H (0.51-1.17) mg/dL Est Cr Clr Drug Dosing 59.22 mL/min Estimated GFR (MDRD) 56 mL/min Glucose 126 H (75 - 99) mg/dL Lactic Acid (0.4-2.0) mmol/L Calcium 9.3 (8.7-10.3) mg/dL Total Bilirubin 0.3 (0.2-1.0) mg/dL AST 15 (15-37) U/L ALT 31 (12-78) U/L Alkaline Phosphatase 87 (46-116) IU/L Troponin I < 0.04 (0.00-0.070) ng/mL C-Reactive Protein (0.0-0.9) mg/dL B-Natriuretic Peptide 58 (0-100) pg/mL Total Protein 7.7 (6.4-8.2) g/dL Albumin 3.85 (3.00-4.80) g/dL SARS CoV-2 RNA Rapid DEL (NEGATIVE) 12/28/19 12/28/19 12/28/19 Range/Units 18:51 18:51 23:10 WBC (5.00-10.00) 10^3/uL RBC (4.50-6.00) 10^6/uL Hgb (13.0-17.0) g/dL Hct (40.0-52.0) % MCV (82.0-92.0) fL MCH (27.0-31.0) pg MCHC (32.0-36.0) g/dL RDW (11.5-14.5) % Plt Count (150-400) 10^3/uL MPV (7.4-10.4) fL Immature Gran % (Auto) (0.0-5.0) % Neut % (Auto) (50.0-70.0) % Lymph % (Auto) (20.0-40.0) % [place] % (Auto) (2.0-8.0) % Eos % (Auto) (1.0-3.0) % Baso % (Auto) (0.0-1.0) % Neut # (Auto) (2.50-7.00) 10^3/uL Lymph # (Auto) (1.00-4.00) 10^3/uL [place] # (Auto) (0.10-0.80) 10^3/uL Eos # (Auto) (0.10-0.30) 10^3/uL Baso # (Auto) (0.00-0.10) 10^3/uL Immature Gran # (Auto) (0.00-0.50) 10^3/uL Add Manual Diff Neutrophils % (Manual) (50-70) % Band Neutrophils % (4-12) % Lymphocytes % (Manual) (20-40) % Monocytes % (Manual) (2-8) % Absolute Neutrophils Band Neutrophils # Lymphocytes # (Manual) Monocytes # (Manual) D-Dimer, Quantitative (<400) ng/mL Sodium (136-145) mmol/L Potassium (3.3-5.3) mmol/L Chloride (98-115) mmol/L Carbon Dioxide (21.0-32.0) mmol/L Anion Gap (5-15) mmol/L BUN (6-25) mg/dL Creatinine (0.51-1.17) mg/dL Est Cr Clr Drug Dosing mL/min Estimated GFR (MDRD) mL/min Glucose (75 - 99) mg/dL Lactic Acid (0.4-2.0) mmol/L Calcium (8.7-10.3) mg/dL Total Bilirubin (0.2-1.0) mg/dL AST (15-37) U/L ALT (12-78) U/L Alkaline Phosphatase (46-116) IU/L Troponin I 0.05 < 0.04 (0.00-0.070) ng/mL C-Reactive Protein 0.9 (0.0-0.9) mg/dL B-Natriuretic Peptide (0-100) pg/mL Total Protein (6.4-8.2) g/dL Albumin (3.00-4.80) g/dL SARS CoV-2 RNA Rapid DEL (NEGATIVE) 12/28/19 12/29/19 12/29/19 Range/Units 23:52 00:25 03:00 WBC 19.76 H (5.00-10.00) 10^3/uL RBC 5.34 (4.50-6.00) 10^6/uL Hgb 15.7 (13.0-17.0) g/dL Hct 46.6 (40.0-52.0) % MCV 87.3 (82.0-92.0) fL MCH 29.4 (27.0-31.0) pg MCHC 33.7 (32.0-36.0) g/dL RDW 12.6 (11.5-14.5) % Plt Count 370 (150-400) 10^3/uL MPV 9.3 (7.4-10.4) fL Immature Gran % (Auto) 0.2 (0.0-5.0) % Neut % (Auto) 90.2 H (50.0-70.0) % Lymph % (Auto) 4.6 L (20.0-40.0) % [place] % (Auto) 4.6 (2.0-8.0) % Eos % (Auto) 0.2 L (1.0-3.0) % Baso % (Auto) 0.2 (0.0-1.0) % Neut # (Auto) 17.85 H (2.50-7.00) 10^3/uL Lymph # (Auto) 0.90 L (1.00-4.00) 10^3/uL [place] # (Auto) 0.90 H (0.10-0.80) 10^3/uL Eos # (Auto) 0.03 L (0.10-0.30) 10^3/uL Baso # (Auto) 0.04 (0.00-0.10) 10^3/uL Immature Gran # (Auto) 0.04 (0.00-0.50) 10^3/uL Add Manual Diff Neutrophils % (Manual) (50-70) % Band Neutrophils % (4-12) % Lymphocytes % (Manual) (20-40) % Monocytes % (Manual) (2-8) % Absolute Neutrophils Band Neutrophils # Lymphocytes # (Manual) Monocytes # (Manual) D-Dimer, Quantitative (<400) ng/mL Sodium (136-145) mmol/L Potassium (3.3-5.3) mmol/L Chloride (98-115) mmol/L Carbon Dioxide (21.0-32.0) mmol/L Anion Gap (5-15) mmol/L BUN (6-25) mg/dL Creatinine (0.51-1.17) mg/dL Est Cr Clr Drug Dosing mL/min Estimated GFR (MDRD) mL/min Glucose (75 - 99) mg/dL Lactic Acid 5.7 H (0.4-2.0) mmol/L Calcium (8.7-10.3) mg/dL Total Bilirubin (0.2-1.0) mg/dL AST (15-37) U/L ALT (12-78) U/L Alkaline Phosphatase (46-116) IU/L Troponin I (0.00-0.070) ng/mL C-Reactive Protein (0.0-0.9) mg/dL B-Natriuretic Peptide (0-100) pg/mL Total Protein (6.4-8.2) g/dL Albumin (3.00-4.80) g/dL SARS CoV-2 RNA Rapid DEL Negative (NEGATIVE) 12/29/19 12/29/19 12/29/19 Range/Units 07:12 07:12 07:12 WBC 16.43 H (5.00-10.00) 10^3/uL RBC 4.46 L (4.50-6.00) 10^6/uL Hgb 13.1 D (13.0-17.0) g/dL Hct 38.7 L (40.0-52.0) % MCV 86.8 (82.0-92.0) fL MCH 29.4 (27.0-31.0) pg MCHC 33.9 (32.0-36.0) g/dL RDW 13.0 (11.5-14.5) % Plt Count 236 D (150-400) 10^3/uL MPV 9.6 (7.4-10.4) fL Immature Gran % (Auto) (0.0-5.0) % Neut % (Auto) (50.0-70.0) % Lymph % (Auto) (20.0-40.0) % [place] % (Auto) (2.0-8.0) % Eos % (Auto) (1.0-3.0) % Baso % (Auto) (0.0-1.0) % Neut # (Auto) (2.50-7.00) 10^3/uL Lymph # (Auto) (1.00-4.00) 10^3/uL [place] # (Auto) (0.10-0.80) 10^3/uL Eos # (Auto) (0.10-0.30) 10^3/uL Baso # (Auto) (0.00-0.10) 10^3/uL Immature Gran # (Auto) (0.00-0.50) 10^3/uL Add Manual Diff Yes Neutrophils % (Manual) 73 H (50-70) % Band Neutrophils % 17 H (4-12) % Lymphocytes % (Manual) 2 L (20-40) % Monocytes % (Manual) 8 (2-8) % Absolute Neutrophils 11.99 Band Neutrophils # 2.79 Lymphocytes # (Manual) 0.33 Monocytes # (Manual) 1.31 D-Dimer, Quantitative (<400) ng/mL Sodium 141 (136-145) mmol/L Potassium 3.3 (3.3-5.3) mmol/L Chloride 105 (98-115) mmol/L Carbon Dioxide 20.8 L (21.0-32.0) mmol/L Anion Gap 18.5 H (5-15) mmol/L BUN 17 (6-25) mg/dL Creatinine 1.22 H (0.51-1.17) mg/dL Est Cr Clr Drug Dosing 63.58 mL/min Estimated GFR (MDRD) > 60 mL/min Glucose 105 H (75 - 99) mg/dL Lactic Acid 2.9 H (0.4-2.0) mmol/L Calcium 8.0 L (8.7-10.3) mg/dL Total Bilirubin 0.8 (0.2-1.0) mg/dL AST 53 H (15-37) U/L ALT 45 (12-78) U/L Alkaline Phosphatase 66 (46-116) IU/L Troponin I (0.00-0.070) ng/mL C-Reactive Protein (0.0-0.9) mg/dL B-Natriuretic Peptide (0-100) pg/mL Total Protein 5.7 L (6.4-8.2) g/dL Albumin 2.70 L (3.00-4.80) g/dL SARS CoV-2 RNA Rapid DEL (NEGATIVE) Result Diagrams: 12/29/19 07:12 12/29/19 07:12 Sepsis Event Note - Evaluation Sepsis Screening Result: Severe Sepsis Risk - Focused Exam Vital Signs: Vital Signs Temp Temp Temp Pulse Resp BP BP 12/29/19 06:50 97.0 F 97 20 93/55 L 12/29/19 04:14 88/64 L 12/29/19 04:00 20 81/57 L 12/29/19 03:40 96.8 F L 98.0 F 111 H 20 93/60 12/29/19 02:27 103.2 F H 103.2 F H 128 H 24 H 165/105 H 12/29/19 01:45 103 F H 12/29/19 00:45 100.9 F H 90 20 147/82 H 12/28/19 22:56 89 20 144/83 H Pulse Ox Pulse Ox 12/29/19 06:50 98 12/29/19 04:14 12/29/19 04:00 97 98 12/29/19 03:40 97 12/29/19 02:27 95 12/29/19 01:45 12/29/19 00:45 97 12/28/19 22:56 98 Problem List Initiated/Reviewed/Updated: Yes Orders Last 24hrs: Active Orders 24 hr Category Date Time Status Admission Status [Patient Status] [ADT] Routine ADT 12/28/19 23:15 Active Cardiac Monitoring [RC] 03,07,11,15,19,23 Care 12/28/19 23:15 Active EKG Documentation Completion [RC] ASDIRECTED Care 12/28/19 19:44 Active Intake and Output [RC] 1400,2200,0600 Care 12/29/19 09:38 Active Oxygen Therapy [RC] ASDIRECTED Care 12/29/19 02:36 Active Up ad [place] [RC] ASDIRECTED Care 12/29/19 09:38 Active Heart Healthy Diet [DIET] Diet 12/29/19 Breakfast Active CRP, HIGH SENSITIVITY [REF] Urgent Lab 12/29/19 07:12 Received CULTURE BLOOD [BC] Stat Lab 12/29/19 01:09 Ordered CULTURE BLOOD [BC] Stat Lab 12/29/19 01:09 Ordered PROCALCITONIN [REF] Urgent Lab 12/29/19 07:12 Received UA RFX FÉLIX AND CULT IF INDIC [URIN] Stat Lab 12/29/19 09:35 Ordered Acetaminophen [TylenoL] Med 12/29/19 01:13 Active 650 mg PO Q4H PRN Naproxen Sodium Med 12/28/19 23:16 Active 220 mg PO Q12H PRN Sodium Chloride 0.9% [Normal Saline] 1,000 ml Med 12/29/19 02:45 Active IV ASDIRECTED Sodium Chloride 0.9% [Saline Flush] Med 12/28/19 17:24 Active 10 ml FLUSH Q8HR PRN Blood Culture x2 Reflex Set [OM.PC] Stat Oth 12/29/19 01:09 Ordered Saline Lock Insert [OM.PC] Routine Oth 12/28/19 17:24 Ordered Saline Lock Insert [OM.PC] Routine Oth 12/28/19 23:17 Ordered Code Status [Resuscitation Status] Stat Resus Stat 12/28/19 23:12 Ordered EKG 12 Lead [EK] Stat Ther 12/28/19 19:44 Ordered Medication Orders Acetaminophen (Tylenol) 650 mg PO Q4H PRN PRN Reason: Fever Last Admin: 12/29/19 01:45 Dose: 650 mg Documented by: MIRIAM Sodium Chloride (Normal Saline) 1,000 mls @ 125 mls/hr IV ASDIRECTED YFN Last Infusion: 12/29/19 07:52 Dose: 125 mls/hr Documented by: Admin: 12/29/19 07:28 Dose: 120 mls/hr Documented by: Infusion: 12/29/19 04:46 Dose: 999 mls/hr Documented by: Infusion: 12/29/19 03:51 Dose: 999 mls/hr Documented by: Admin: 12/29/19 03:00 Dose: 100 mls/hr Documented by: MIRIAM Naproxen (Naproxen Sodium) 220 mg PO Q12H PRN PRN Reason: Chest Pain Last Admin: 12/28/19 23:57 Dose: 220 mg Documented by: MIRIAM Sodium Chloride (Saline Flush) 10 ml FLUSH Q8HR PRN PRN Reason: keep vein open Last Admin: 12/29/19 01:55 Dose: 10 ml Documented by: MIRIAM Assessment/Plan Comment:: History of present illness 79-year-old obese gentleman was admitted into OBS status through the ED due to chest pain. Patient stated he started having non-exertional chest pain yesterday late afternoon while he was mowing the lawn. He has a history of similar type anterior chest pain without definitive etiology. He stated he ate a heavy meal prior to mowing lawns with a riding lawnmower. Pain was not relieved by 3 nitroglycerin. Previous work-ups include stress test which he stated was normal. Has a history of HLD, GERD HTN. Patient has no prosthetic implants Pertinent ED findings/work-up/exam --07/01 nonradiating anterior chest pain, diaphoresis --Elevated inflammatory markers --BP 139/87, RR 16, O2 sats 99%, temperature 97 --D-dimer 581 --Lactate 5.7 --AST 53 --Negative troponin --EKG, SR with 1st AV block --Chest x-ray, lungs clear --CT, chest, cholecystolithiasis --BC Hospital course 12/29/2019, patient stated last night became SOB breath, very diaphoretic with nursing reporting fever 103.2, hypotension and restlessness. Returned gram- negative rods Acute hospital problems Bacteremia/sepsis, community-onset, with gram neg BC/bacteremia one would suspect either respiratory/urological or abd etiology, UA non-concerning Chronic Problems HLD, diet controlled HTN, Hold BP meds GERD, PPI Disposition/overall plan --Change to Inpatient status sepsis, IV antibiotics, close monitoring, place in ICU status --Start cefepime STAT --IV bolus and aggressive fluid challenges --UA --Sputum cx. --Assess lipase --labs this PM Monitor BP/MAP, parameters to notify provider, report AMS, MAP<65, fevers, d iaphoriesis, restlessness, worsening chest pain
[2019-12-29] MEDS: Cefepime 2 GM in Sodium Chloride 0.9% 50 ML IV SCH ×2 (11:12→18:34)
[2019-12-29] MEDS ORDERED: Cefepime 2 GM in Sodium Chloride 0.9% 50 ML IV SCH (14:00)
[2019-12-30] MEDS: Cefepime 2 GM in Sodium Chloride 0.9% 50 ML IV SCH ×2 (02:52→13:31)
[2019-12-30] MEDS: Sodium Chloride 0.9% 1,000 ML IV SCH ×2 (06:36→13:31)
[2019-12-30] MEDS: Acetaminophen 325 MG Tab PO PRN (07:56)
[2019-12-30 08:20] LABS: ANION GAP 18.4 mmol/L (5-15); CHLORIDE,CL 108 mmol/L (98-115); SODIUM,NA 143 mmol/L (136-145)
[2019-12-30] MEDS ORDERED: Aspirin 81 MG Tab.Chew PO SCH (09:00)
[2019-12-30] MEDS ORDERED: Sodium Chloride 0.9% 50 ML IV SCH (10:30)
[2019-12-30] MEDS ORDERED: Iopamidol 755 Mg/ML 100 ML Bottle IV ONE (10:30)
[2019-12-30] MEDS ORDERED: Sodium Chloride 0.9% 1,000 ML IV ONE (10:51)
--- NOTE | 2019-12-30 11:00 | PCM.PN ---
- General Info Date of Service: 12/30/19 Functional Status: Reports: Pain Controlled, Tolerating Diet, Urinating, New Symptoms (abd bloating) - Review of Systems General: Reports: Fever, Chills, Night Sweats HEENT: Reports: No Symptoms Pulmonary: Reports: Shortness of Breath (SOB due to abd distention). Denies: Cough, Sputum, Hemoptysis, Wheezing Cardiovascular: Reports: Dyspnea on Exertion. Denies: Edema Gastrointestinal: Reports: Abdominal Pain (abd pain sporadic RMQ), Diarrhea, Flatus. Denies: Constipation, Decreased Appetite, Difficulty Swallowing, Nausea, Vomiting Genitourinary: Denies: Burning, Pain, Urgency, Incontinence, Hematuria, Retention, Flank Pain Musculoskeletal: Reports: No Symptoms Skin: Reports: Dryness. Denies: Jaundice, Mottled, Bruising, Rash Neurological: Denies: Confusion, Dizziness - Patient Data Vitals - Most Recent: Last Vital Signs Temp 98.4 F 12/30/19 09:12 Pulse 90 12/30/19 07:00 Resp 16 12/30/19 07:00 BP 118/70 12/30/19 07:00 Pulse Ox 95 12/30/19 07:00 Weight - Most Recent: 280 lb I&O - Last 24 Hours: Intake & Output 12/29/19 12/30/19 12/30/19 22:59 06:59 14:59 Intake Total 2053 2055 Output Total 800 1050 Balance 1253 1005 Lab Results Last 24 Hours: Laboratory Results - last 24 hr 12/29/19 12/29/19 12/29/19 Range/Units 07:12 07:12 17:15 WBC 30.74 H* D (5.00-10.00) 10^3/uL RBC 4.00 L (4.50-6.00) 10^6/uL Hgb 12.0 L (13.0-17.0) g/dL Hct 35.4 L (40.0-52.0) % MCV 88.5 (82.0-92.0) fL MCH 30.0 (27.0-31.0) pg MCHC 33.9 (32.0-36.0) g/dL RDW 13.4 (11.5-14.5) % Plt Count 243 (150-400) 10^3/uL MPV 9.4 (7.4-10.4) fL Add Manual Diff Yes Neutrophils % (Manual) 74 H (50-70) % Band Neutrophils % 16 H (4-12) % Lymphocytes % (Manual) 1 L (20-40) % Monocytes % (Manual) 8 (2-8) % Eosinophils % (Manual) 1 (1-3) % Absolute Neutrophils 27.6660 Lymphocytes # (Manual) 0.3074 Monocytes # (Manual) 2.4592 Eosinophils # (Manual) 0.3074 Sodium (136-145) mmol/L Potassium (3.3-5.3) mmol/L Chloride (98-115) mmol/L Carbon Dioxide (21.0-32.0) mmol/L Anion Gap (5-15) mmol/L BUN (6-25) mg/dL Creatinine (0.51-1.17) mg/dL Est Cr Clr Drug Dosing mL/min Estimated GFR (MDRD) mL/min Glucose (75 - 99) mg/dL Calcium (8.7-10.3) mg/dL Total Bilirubin (0.2-1.0) mg/dL AST (15-37) U/L ALT (12-78) U/L Alkaline Phosphatase (46-116) IU/L C-React Prot High Sens 44.81 mg/L Total Protein (6.4-8.2) g/dL Albumin (3.00-4.80) g/dL Procalcitonin 41.65 H (<0.10) ng/mL 12/30/19 12/30/19 Range/Units 07:10 07:10 WBC 20.84 H (5.00-10.00) 10^3/uL RBC 4.50 (4.50-6.00) 10^6/uL Hgb 13.3 (13.0-17.0) g/dL Hct 40.6 (40.0-52.0) % MCV 90.2 (82.0-92.0) fL MCH 29.6 (27.0-31.0) pg MCHC 32.8 (32.0-36.0) g/dL RDW 13.9 (11.5-14.5) % Plt Count 217 (150-400) 10^3/uL MPV 9.7 (7.4-10.4) fL Add Manual Diff Yes Neutrophils % (Manual) 77 H (50-70) % Band Neutrophils % 13 H (4-12) % Lymphocytes % (Manual) 4 L (20-40) % Monocytes % (Manual) 5 (2-8) % Eosinophils % (Manual) 1 (1-3) % Absolute Neutrophils 18.7560 Lymphocytes # (Manual) 0.8336 Monocytes # (Manual) 1.0420 Eosinophils # (Manual) 0.2084 Sodium 143 (136-145) mmol/L Potassium 3.9 (3.3-5.3) mmol/L Chloride 108 (98-115) mmol/L Carbon Dioxide 20.5 L (21.0-32.0) mmol/L Anion Gap 18.4 H (5-15) mmol/L BUN 16 (6-25) mg/dL Creatinine 1.03 (0.51-1.17) mg/dL Est Cr Clr Drug Dosing 75.31 mL/min Estimated GFR (MDRD) > 60 mL/min Glucose 97 (75 - 99) mg/dL Calcium 7.8 L (8.7-10.3) mg/dL Total Bilirubin 0.8 (0.2-1.0) mg/dL AST 53 H (15-37) U/L ALT 61 (12-78) U/L Alkaline Phosphatase 83 (46-116) IU/L C-React Prot High Sens mg/L Total Protein 6.0 L (6.4-8.2) g/dL Albumin 2.53 L (3.00-4.80) g/dL Procalcitonin (<0.10) ng/mL Kevin Results Last 24 Hours: Microbiology 12/29/19 01:55 Aerobic Blood Culture - Preliminary Blood - Venous - Lab Draw Anaerobic Blood Culture - Preliminary 12/29/19 01:35 Aerobic Blood Culture - Preliminary Blood - Venous Anaerobic Blood Culture - Preliminary Med Orders - Current: Current Medications Acetaminophen (Tylenol) 650 mg PO Q4H PRN PRN Reason: Fever Last Admin: 12/30/19 07:56 Dose: 650 mg Documented by: Aspirin (Aspirin) 81 mg PO DAILY [facility] Last Admin: 12/30/19 08:00 Dose: 81 mg Documented by: Cefepime HCl 2 gm/ Sodium (Chloride) 50 mls @ 100 mls/hr IV Q8H [facility] Last Admin: 12/30/19 02:52 Dose: 100 mls/hr Documented by: Sodium Chloride (Normal Saline) 1,000 mls @ 300 mls/hr IV ASDIRECTED [facility] Last Admin: 12/30/19 06:36 Dose: 150 mls/hr Documented by: Sodium Chloride (Normal Saline) 50 mls @ 200 mls/hr IV ASDIRECTED YFN Sodium Chloride (Normal Saline) 1,000 mls @ 999 drops/hr IV .BOLUS ONE Stop: 12/31/19 01:51 Naproxen (Naproxen Sodium) 220 mg PO Q12H PRN PRN Reason: Chest Pain Last Admin: 12/28/19 23:57 Dose: 220 mg Documented by: Omeprazole (Omeprazole) 40 mg PO DAILY PRN PRN Reason: Heartburn Sodium Chloride (Saline Flush) 10 ml FLUSH Q8HR PRN PRN Reason: keep vein open Last Admin: 12/29/19 01:55 Dose: 10 ml Documented by: Discontinued Medications Al Hydroxide/Mg Hydroxide (Mag-Al Plus) 30 ml PO ONETIME ONE Stop: 12/28/19 18:15 Last Admin: 12/28/19 18:24 Dose: 30 ml Documented by: Aspirin (Aspirin) 243 mg PO ONETIME ONE Stop: 12/28/19 17:25 Last Admin: 12/28/19 17:38 Dose: 243 mg Documented by: Aspirin (Aspirin) Confirm Administered Dose 243 mg .ROUTE .STK-MED ONE Stop: 12/28/19 17:25 Last Admin: 12/28/19 17:39 Dose: Not Given Documented by: Ceftriaxone Sodium (Rocephin) 1 gm IVPUSH ONETIME ONE Stop: 12/29/19 01:11 Last Admin: 12/29/19 01:55 Dose: 1 gm Documented by: Sodium Chloride (Normal Saline) 1,000 mls @ 999 mls/hr IV .BOLUS ONE Stop: 12/28/19 18:24 Last Admin: 12/28/19 17:39 Dose: 999 mls/hr Documented by: Sodium Chloride (Normal Saline) Confirm Administered Dose 1,000 mls @ as directed .ROUTE .STK-MED ONE Stop: 12/28/19 20:05 Last Admin: 12/28/19 20:08 Dose: Not Given Documented by: Sodium Chloride (Normal Saline) 1,000 mls @ 999 mls/hr IV .BOLUS ONE Stop: 12/28/19 21:08 Last Admin: 12/28/19 19:53 Dose: 999 mls/hr Documented by: Sodium Chloride (Normal Saline) 100 mls @ 200 mls/hr IV ASDIRECTED [facility] Last Admin: 12/28/19 21:45 Dose: 200 mls/hr Documented by: Azithromycin 500 mg/ Sodium (Chloride) 250 mls @ 250 mls/hr IV ONETIME ONE Stop: 12/29/19 02:10 Last Admin: 12/29/19 02:13 Dose: 250 mls/hr Documented by: Sodium Chloride (Normal Saline) 1,000 mls @ 125 mls/hr IV ASDIRECTED [facility] Last Infusion: 12/29/19 22:19 Dose: Infused Documented by: Cefepime HCl 2 gm/ Sodium (Chloride) 50 mls @ 100 mls/hr IV Q8HR [facility] Sodium Chloride (Normal Saline) 1,000 mls @ 250 mls/hr IV ASDIRECTED [facility] Last Admin: 12/29/19 18:33 Dose: 250 mls/hr Documented by: Sodium Chloride (Normal Saline) 1,000 mls @ 999 mls/hr IV .BOLUS ONE Stop: 12/29/19 11:21 Last Admin: 12/29/19 10:50 Dose: 999 mls/hr Documented by: Iopamidol (Isovue-370 (76%)) 100 ml IV ONETIME ONE Stop: 12/28/19 22:14 Last Admin: 12/28/19 21:45 Dose: 80 ml Documented by: Iopamidol (Isovue-370 (76%)) 100 ml IV ONETIME ONE Stop: 12/30/19 10:31 Morphine Sulfate (Morphine) 4 mg IVPUSH ONETIME ONE Stop: 12/28/19 17:29 Last Admin: 12/28/19 17:33 Dose: 2 mg Documented by: Morphine Sulfate (Morphine) Confirm Administered Dose 4 mg .ROUTE .STK-MED ONE Stop: 12/28/19 17:33 Last Admin: 12/28/19 17:39 Dose: Not Given Documented by: Nitroglycerin (Nitrostat) 0.4 mg SL ONETIME ONE Stop: 12/28/19 17:29 Last Admin: 12/28/19 17:33 Dose: 0.4 mg Documented by: Nitroglycerin (Nitrostat) 0.4 mg SL ONETIME ONE Stop: 12/28/19 19:53 Last Admin: 12/28/19 19:55 Dose: 0.4 mg Documented by: Sodium Chloride (Saline Flush) 10 ml FLUSH Q8HR PRN PRN Reason: keep vein open - Exam Quality Assessment: Supplemental Oxygen General: Alert, Oriented, No Acute Distress Neck: No JVD, No Thyromegaly Lungs: Clear to Auscultation, Normal Respiratory Effort. No: Crackles, Rales, Rhonchi, Rub, Stridor, Wheezing Cardiovascular: Regular Rate, Regular Rhythm, No Murmurs GI/Abdominal Exam: Distended. No: No Distention, Rigid, Rebound, Tender, Mass, Hepatomegaly, Splenomegaly (Male) Exam: Deferred Back Exam: No: CVA Tenderness (L) Extremities: No Pedal Edema Peripheral Pulses: 2+: Radial (L), 3+: Radial (R) Skin: Warm, Dry, Intact Neurological: Normal Speech, Normal Tone, Sensation Intact Psy/Mental Status: Alert, Normal Affect, Normal Mood Sepsis Event Note - Evaluation Sepsis Screening Result: Severe Sepsis Risk - Focused Exam Vital Signs: Vital Signs Temp Temp Temp Pulse Resp BP Pulse Ox 12/30/19 09:12 98.4 F 12/30/19 07:56 101.6 F H 12/30/19 07:45 99.6 F 12/30/19 07:00 98.7 F 90 16 118/70 95 12/30/19 03:00 98.7 F 109 H 20 164/87 H 96 12/29/19 23:00 98 F 92 24 H 120/70 95 - Problem List Review Problem List Initiated/Reviewed/Updated: Yes - My Orders Last 24 Hours: My Active Orders 12/29/19 10:38 Omeprazole 40 mg PO DAILY PRN 12/29/19 11:00 Cefepime [Maxipime] 2 gm Sodium Chloride 0.9% [Normal Saline] 50 ml IV Q8H 12/29/19 11:07 Patient Status [ADT] Routine 12/29/19 22:13 Sodium Chloride 0.9% [Normal Saline] 1,000 ml IV ASDIRECTED 12/30/19 09:00 Aspirin 81 mg PO DAILY 12/30/19 09:59 Chest 2V [CR] Routine 12/30/19 10:23 Abdomen Pelvis w Cont [CT] Routine 12/30/19 10:30 Sodium Chloride 0.9% [Normal Saline] 50 ml IV ASDIRECTED 12/30/19 10:51 Sodium Chloride 0.9% [Normal Saline] 1,000 ml IV .BOLUS 12/30/19 Lunch Nothing Per Oral Diet [DIET] - Plan Plan:: History of present illness 79-year-old obese gentleman was admitted into OBS status through the ED due to chest pain. Patient stated he started having non-exertional chest pain yesterday late afternoon while he was mowing the lawn. He has a history of similar type anterior chest pain without definitive etiology. He stated he ate a heavy meal prior to mowing lawns with a riding lawnmower. Pain was not relieved by 3 nitroglycerin. Previous work-ups include stress test which he stated was normal. Has a history of HLD, GERD HTN. Patient has no prosthetic implants Pertinent ED findings/work-up/exam --07/01 nonradiating anterior chest pain, diaphoresis --Elevated inflammatory markers --BP 139/87, RR 16, O2 sats 99%, temperature 97 --D-dimer 581 --Lactate 5.7 --AST 53 --Negative troponin --EKG, SR with 1st AV block --Chest x-ray, lungs clear --CT, chest, cholecystolithiasis --BC Hospital course 12/29/2019; patient stated last night became SOB breath, very diaphoretic with nursing reporting fever 103.2, hypotension and restlessness. Returned gram-negative rods 12/30/2019; round this morning new concern of abdominal "bloating this" however slightly sporadic tenderness right mid quadrant with mild diarrhea. Fever 101.6 early this morning, white count with 30,000 yesterday down to 20,000 today with significant elevated procalcitonin. Fluid challenges yesterday with intake 3.5x greater than output. Cefepime ongoing. No cough, some SOB however likely 2/2 abd distention. No jaundice, lipase normal, cultures gram-negative rods however no identifiable organism returned to date. Acute hospital problems Bacteremia/sepsis, community-onset, with gram neg BC/bacteremia one would suspect either respiratory/urological or abd etiology, UA non-concerning Cholecystolithiasis Chronic Problems HLD, diet controlled HTN, Hold BP meds GERD, PPI Disposition/overall plan --Continue with Inpatient status sepsis, IV antibiotics, close monitoring, CT abdomen --CT Abd --IV bolus with periodic fluid challenges as directed. --Monitor BP/MAP, parameters to notify provider, report AMS, MAP<65, fevers, diaphoriesis, restlessness,
[2019-12-30] MEDS ORDERED: Diatrizoate Meglumine/Diatrizoate Sodium 37% 30 ML Bottle PO ONE (12:13)
--- NOTE | 2019-12-30 13:12 | CT ---
[id number] CT/CT Abdomen Pelvis W IV EXAM: ABDOMEN AND PELVIS CT WITH CONTRAST INDICATION: ABDOMEN DISCOMFORT. COMPARISON: None. DISCUSSION: There are multiple calcified gallstones including an 18 mm calculus in the neck of the gallbladder. Gallbladder wall thickening and surrounding inflammatory changes are consistent with acute cholecystitis. There is a small amount of gas within the nondependent gallbladder and possible areas of gas within the gallbladder wall raising the possibility of emphysematous cholecystitis. Infiltrating phlegmon around the gallbladder with secondary inflammation in the hepatic flexure of the colon. No drainable abscess, free air or free fluid. Scattered diverticula of the colon without evidence of diverticulitis. The heart is mildly enlarged. The liver, spleen, pancreas, adrenal glands, kidneys, and small bowel are normal in appearance. No adenopathy. The osseous structures are unremarkable. IMPRESSION: 1. Acute calculus emphysematous cholecystitis. Chandler Baez MD 12/30/19 [id number] Thank you for allowing us to participate in the care of your patient.
[2019-12-30 15:27] VITALS: BP 131/85; PULSE 79
== END 2019-12-30 16:25 | DRG 872 ==
LOC: KA.ED 17:16 → KA.MS 23:15 → UNDOADMOB 12-29 00:15 → OBSVTOIN 12-29 11:07
PROVIDERS: ADMIT Nurse Practitioner Family; ATTEND Family Medicine
DX: A41.50 Gram-negative sepsis, unspecified (principal); Z68.41 Body mass index [BMI] 40.0-44.9, adult; K80.20 Calculus of gallbladder without cholecystitis without obstruction; E78.5 Hyperlipidemia, unspecified; K21.9 Gastro-esophageal reflux disease without esophagitis; I10 Essential (primary) hypertension; Z20.828 Contact with and (suspected) exposure to other viral communicable diseases; R07.89 Other chest pain; H54.7 Unspecified visual loss; E66.9 Obesity, unspecified; Z91.09 Other allergy status, other than to drugs and biological substances; Z79.82 Long term (current) use of aspirin; Z79.899 Other long term (current) drug therapy; Z90.49 Acquired absence of other specified parts of digestive tract
CPT/HCPCS: 36415; 71045; 71260; 74177; 80053; 81003; 82150; 83605; 83690; 83880; 84145; 84484; 85025; 85027; 85379; 86140; 86141; 87040; 87077; 87186; 93005; 96361; 96374; 99284; 99285-25; A9270-GY; J0456; J0692; J0696; J2270; J7030; J7050; Q9967; U0002

== ENCOUNTER 2020-07-25 09:26 | Emergency (ER) | payer MEDICAID ==
--- NOTE | 2020-07-25 10:47 | EDM.PDOC ---
ED HPI GENERAL MEDICAL PROBLEM - General Chief Complaint: General Stated Complaint: EXTREME DIZZINESS Time Seen by Provider: 07/25/20 10:04 Source of Information: Reports: Patient, Family (mom, sister) History Limitations: Reports: No Limitations - History of Present Illness INITIAL COMMENTS - FREE TEXT/NARRATIVE: Patient presents with vertigo that started while lying in bed at 0400 this morning. It is triggered easily by head movements. He says he has also noticed double vision, lasting 5-10 minutes, while watching TV at times the past month, usually in the morning but not every morning and not necessarily when having vertigo. The double vision seems to be when head is turned to left but not to right. Denies ringing or roaring in ears or hearing loss. He says that when the vertigo is at its worst he wouldn't attempt standing or walking because he knows he would fall but denies significant balance trouble at other times; although his mother says he looked a little off balance once today when he was walking. She has also noticed a slight speech change since last December when he had his gallbladder infection. Denies vomiting. He had a similar episode 3 weeks ago and has been seeing PT for multiple Heath Maneuver treatments without noticeable benefit. No benefit with Meclizine either. He has not had any imaging for this. - Related Data Allergies Allergy/AdvReac Type Severity Reaction Status Date / Time pollens Allergy Intermediate Hives Uncoded 07/25/20 09:29 Home Meds: Home Meds Losartan Potassium 75 mg PO DAILY 01/01/19 [History] Omeprazole 40 mg PO DAILY PRN 01/01/19 [History] Aspirin 81 mg PO DAILY 12/28/19 [History] Past Medical History HEENT History: Reports: Impaired Vision Cardiovascular History: Reports: Hypertension Respiratory History: Reports: None Gastrointestinal History: Reports: Cholelithiasis Genitourinary History: Reports: None Musculoskeletal History: Reports: None Neurological History: Reports: Vertigo Psychiatric History: Reports: None Endocrine/Metabolic History: Reports: Obesity/BMI 30+ Hematologic History: Reports: None Immunologic History: Reports: None Oncologic (Cancer) History: Reports: None Dermatologic History: Reports: None - Infectious Disease History Infectious Disease History: Reports: Chicken Pox, Measles - Past Surgical History Head Surgeries/Procedures: Reports: None HEENT Surgical History: Reports: None Cardiovascular Surgical History: Reports: None GI Surgical History: Reports: Appendectomy, Cholecystectomy, Hernia, Abdominal Other GI Surgeries/Procedures: umbilical hernia repair 04/23/16 Male Surgical History: Reports: None Endocrine Surgical History: Reports: None Neurological Surgical History: Reports: None Musculoskeletal Surgical History: Reports: None Dermatological Surgical History: Reports: None Social & Family History - Family History Family Medical History: No Pertinent Family History - Tobacco Use Tobacco Use Status *Q: Never Tobacco User - Caffeine Use Caffeine Use: Reports: Soda - Alcohol Use Days Per Week of Alcohol Use: 0 - Recreational Drug Use Recreational Drug Use: No ED ROS GENERAL - Review of Systems Review Of Systems: See Below Constitutional: Denies: Fever, Chills, Malaise, Weakness HEENT: Reports: Vertigo, Vision Change (intermittent diplopia). Denies: Ear Pain, Throat Pain Respiratory: Denies: Shortness of Breath, Cough Cardiovascular: Denies: Chest Pain, Lightheadedness, Syncope GI/Abdominal: Denies: Abdominal Pain, Vomiting : Denies: Dysuria, Flank Pain Musculoskeletal: Denies: Neck Pain, Shoulder Pain, Arm Pain, Back Pain, Hand Pain, Leg Pain Skin: Denies: Cyanosis, Jaundice, Mottled, Pallor, Diaphoresis Neurological: Reports: Dizziness. Denies: Confusion, Headache, Numbness, Seizure, Syncope, Trouble Speaking, Difficulty Walking Psychiatric: Denies: Agitation, Anxiety, Confusion ED EXAM, GENERAL - Physical Exam Exam: See Below Exam Limited By: No Limitations General Appearance: Alert, WD/WN, No Apparent Distress Eye Exam: Bilateral Eye: EOMI, Normal Inspection, PERRL Ears: Normal External Exam, Hearing Grossly Normal Ear Exam: Right Ear: Canal Normal, TM normal, Left Ear: Foreign Body (cerumen impaction), Bilateral Ear: Auricle Normal Nose: Normal Inspection, No Blood Throat/Mouth: Normal Inspection, Normal Lips, Normal Voice, No Airway Compromise Head: Atraumatic, Normocephalic Neck: Normal Inspection, Supple, Non-Tender, Full Range of Motion Respiratory/Chest: No Respiratory Distress, Lungs Clear, Normal Breath Sounds, No Accessory Muscle Use Cardiovascular: Regular Rate, Rhythm, No Murmur GI/Abdominal: Normal Bowel Sounds, Soft, Non-Tender, No Organomegaly, No Distention Back Exam: Normal Inspection, Full Range of Motion. No: CVA Tenderness (L), CVA Tenderness (R) Extremities: Normal Inspection, Normal Range of Motion, Non-Tender, No Pedal Edema, Other (5/5 symmetric strength of UE and LE) Neurological: Alert, Oriented, CN II-XII Intact, Normal Cognition, No Motor/Sensory Deficits, Other (Billy-Hallpike test is basically negative, very slight vertigo trigger to left, no nystagmus observed. Head-Thrust test is negative.) Psychiatric: Normal Affect, Normal Mood Skin Exam: Warm, Dry, Intact, Normal Color, No Rash Course - Vital Signs Last Recorded V/S: Last Vital Signs Temp 97.3 F 07/25/20 09:33 Pulse 76 07/25/20 11:30 Resp 19 07/25/20 11:30 BP 140/94 H 07/25/20 11:30 Pulse Ox 99 07/25/20 11:30 - Orders/Labs/Meds Orders: Active Orders 24 hr Category Date Time Status Ear Irrigation [RC] ASDIRECTED Care 07/25/20 11:18 Active Labs: Laboratory Tests 07/25/20 07/25/20 07/25/20 Range/Units 11:15 11:15 11:49 WBC 10.33 H D (5.00-10.00) 10^3/uL RBC 5.29 (4.50-6.00) 10^6/uL Hgb 15.2 D (13.0-17.0) g/dL Hct 45.5 (40.0-52.0) % MCV 86.0 D (82.0-92.0) fL MCH 28.7 (27.0-31.0) pg MCHC 33.4 (32.0-36.0) g/dL RDW 12.8 (11.5-14.5) % Plt Count 416 H D (150-400) 10^3/uL MPV 9.3 (7.4-10.4) fL Immature Gran % (Auto) 1.0 (0.0-5.0) % Neut % (Auto) 77.8 H (50.0-70.0) % Lymph % (Auto) 13.4 L (20.0-40.0) % Dukes % (Auto) 6.7 (2.0-8.0) % Eos % (Auto) 0.8 L (1.0-3.0) % Baso % (Auto) 0.3 (0.0-1.0) % Neut # (Auto) 8.05 H (2.50-7.00) 10^3/uL Lymph # (Auto) 1.38 (1.00-4.00) 10^3/uL Dukes # (Auto) 0.69 (0.10-0.80) 10^3/uL Eos # (Auto) 0.08 L (0.10-0.30) 10^3/uL Baso # (Auto) 0.03 (0.00-0.10) 10^3/uL Immature Gran # (Auto) 0.10 (0.00-0.50) 10^3/uL Sodium 136 (136-145) mmol/L Potassium 4.6 (3.5-5.1) mmol/L Chloride 101 (98-107) mmol/L Carbon Dioxide 25.4 (21.0-32.0) mmol/L Anion Gap 14.2 (5-15) mmol/L BUN 11 (7-18) mg/dL Creatinine 0.99 (0.51-1.17) mg/dL Est Cr Clr Drug Dosing 77.37 mL/min Estimated GFR (MDRD) > 60 mL/min Glucose 104 (70-140) mg/dL Lactic Acid (0.4-2.0) mmol/L Calcium 9.1 (8.7-10.3) mg/dL Total Bilirubin 0.6 (0.2-1.0) mg/dL AST 18 (15-37) U/L ALT 30 (14-63) U/L Alkaline Phosphatase 104 (46-116) U/L Total Protein 7.4 (6.4-8.2) g/dL Albumin 3.38 L (3.40-5.00) g/dL Specimen Type Urinblad Urine Color Yellow (YELLOW) Urine Appearance Clear (CLEAR) Urine pH 7.5 (5.0-9.0) Ur Specific [place] 1.020 (1.005-1.030) Urine Protein Negative (NEGATIVE) mg/dL Urine Glucose (UA) Negative (NEGATIVE) mg/dL Urine Ketones Negative (NEGATIVE) mg/dL Urine Occult Blood Trace-intact H (NEGATIVE) Urine Nitrite Negative (NEGATIVE) Urine Bilirubin Negative (NEGATIVE) Urine Urobilinogen 0.2 (0.2-1.0) E.U./dL Ur Leukocyte Esterase Negative (NEGATIVE) Urine RBC 0-5 (0-5) /HPF Urine WBC Not seen (0-5) /HPF Ur Epithelial Cells Rare /LPF Urine Bacteria Not seen (NONE TO FEW) /HPF 07/25/20 Range/Units 13:00 WBC (5.00-10.00) 10^3/uL RBC (4.50-6.00) 10^6/uL Hgb (13.0-17.0) g/dL Hct (40.0-52.0) % MCV (82.0-92.0) fL MCH (27.0-31.0) pg MCHC (32.0-36.0) g/dL RDW (11.5-14.5) % Plt Count (150-400) 10^3/uL MPV (7.4-10.4) fL Immature Gran % (Auto) (0.0-5.0) % Neut % (Auto) (50.0-70.0) % Lymph % (Auto) (20.0-40.0) % Dukes % (Auto) (2.0-8.0) % Eos % (Auto) (1.0-3.0) % Baso % (Auto) (0.0-1.0) % Neut # (Auto) (2.50-7.00) 10^3/uL Lymph # (Auto) (1.00-4.00) 10^3/uL Dukes # (Auto) (0.10-0.80) 10^3/uL Eos # (Auto) (0.10-0.30) 10^3/uL Baso # (Auto) (0.00-0.10) 10^3/uL Immature Gran # (Auto) (0.00-0.50) 10^3/uL Sodium (136-145) mmol/L Potassium (3.5-5.1) mmol/L Chloride (98-107) mmol/L Carbon Dioxide (21.0-32.0) mmol/L Anion Gap (5-15) mmol/L BUN (7-18) mg/dL Creatinine (0.51-1.17) mg/dL Est Cr Clr Drug Dosing mL/min Estimated GFR (MDRD) mL/min Glucose (70-140) mg/dL Lactic Acid 2.5 H (0.4-2.0) mmol/L Calcium (8.7-10.3) mg/dL Total Bilirubin (0.2-1.0) mg/dL AST (15-37) U/L ALT (14-63) U/L Alkaline Phosphatase (46-116) U/L Total Protein (6.4-8.2) g/dL Albumin (3.40-5.00) g/dL Specimen Type Urine Color (YELLOW) Urine Appearance (CLEAR) Urine pH (5.0-9.0) Ur Specific [place] (1.005-1.030) Urine Protein (NEGATIVE) mg/dL Urine Glucose (UA) (NEGATIVE) mg/dL Urine Ketones (NEGATIVE) mg/dL Urine Occult Blood (NEGATIVE) Urine Nitrite (NEGATIVE) Urine Bilirubin (NEGATIVE) Urine Urobilinogen (0.2-1.0) E.U./dL Ur Leukocyte Esterase (NEGATIVE) Urine RBC (0-5) /HPF Urine WBC (0-5) /HPF Ur Epithelial Cells /LPF Urine Bacteria (NONE TO FEW) /HPF Meds: Medications Discontinued Medications Generic Name Dose Route Start Last Admin Trade Name Freq PRN Reason Stop Dose Admin Lorazepam 1 mg 07/25/20 11:40 07/25/20 14:09 Lorazepam 0.5 Mg Tab PO 07/25/20 11:41 Not Given ONETIME ONE Lorazepam Confirm 07/25/20 14:04 07/25/20 14:08 Lorazepam 0.5 Mg Tab Administered 07/25/20 14:05 1 mg Dose Administration 1 mg .ROUTE .STK-MED ONE - Re-Assessments/Exams Free Text/Narrative Re-Assessment/Exam: 07/25/20 11:21 Will irrigate left ear to remove cerumen. I am not sure whether this is a central or peripheral vertigo. I discussed case with Dr. Pastor, neurologist at who is also unsure whether this is a central or peripheral vertigo based on all of the history and clinical findings. She recommends non-contrast brain MRI to rule out brainstem infarct but suspects it is more likely a peripheral vertigo. She thinks a referral to otoneurology would be most helpful but doesn't know if there is one in [place]; suggests general neurology referral to [place] as outpatient to start with if MRI is negative today. Fortunately we have an opening today in the MRI truck. 07/25/20 11:40 A fairly large amount of cerumen was dislodged from left ear canal leaving a clear canal and TM. Patient mentions now that 5 years ago he would have intermittent problems sometime when driving: he would feel like he was being sucked out of the left car door and would have to lean to the right. 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 This hasn't been a problem recently however. 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 07/25/20 11:47 Waiting on MRI now. 07/25/20 16:01 MRI shows no acute process, hemorrhage, mass, mass effect, or sites of signal abnormality. 07/25/20 16:54 I discussed case with Mckayla Medarno NP to determine best method of referring to neurology as outpatient. She put in an urgent consult and said that they should be calling patient tomorrow. I discussed findings and plan with patient. He is feeling quite well now and is discharged to home in stable condition. Departure - Departure Time of Disposition: 16:42 Disposition: Home, Self-Care 01 Condition: Good Clinical Impression: Vertigo, intermittent - Discharge Information Referrals: Connie Wilson PA-C [Primary Care Provider] - Forms: ED Department Discharge Additional Instructions: You can use your Meclizine as directed to control the vertigo. The [facility] department in [place] should call you tomorrow to set up an appointment there. Call the [facility] if you don't hear from them by noon tomorrow. Avoid driving if you are having vertigo. Sepsis Event Note (ED) - Evaluation Sepsis Screening Result: No Definite Risk - Focused Exam Vital Signs: Vital Signs Temp Pulse Resp BP Pulse Ox 07/25/20 11:30 76 19 140/94 H 99 07/25/20 11:00 79 18 137/92 H 97 07/25/20 10:45 77 15 134/81 98 07/25/20 10:30 74 15 134/81 98 07/25/20 10:15 90 15 149/94 H 98 07/25/20 10:00 77 12 131/81 99 07/25/20 09:45 79 18 136/88 98 07/25/20 09:33 97.3 F 79 20 148/93 H 07/25/20 09:30 79 12 136/87 98 - My Orders Last 24 Hours: My Active Orders 07/25/20 11:18 Ear Irrigation [RC] ASDIRECTED - Assessment/Plan Last 24 Hours: My Active Orders 07/25/20 11:18 Ear Irrigation [RC] ASDIRECTED
[2020-07-25] MEDS ORDERED: LORazepam 0.5 MG Tab PO ONE (11:40)
[2020-07-25 11:41] VITALS: BP 140/94; PULSE 76
[2020-07-25 12:05] LABS: ANION GAP 14.2 mmol/L (5-15); CHLORIDE,CL 101 mmol/L (98-107); SODIUM,NA 136 mmol/L (136-145)
[2020-07-25] MEDS ORDERED: LORazepam 0.5 MG Tab ONE (14:04)
--- NOTE | 2020-07-25 15:55 | MR ---
[id number] MR/MRI Brain and Stem WO IV EXAM: MRI Brain and Stem WO IV CLINICAL DATA: VERTIGO DIPLOPIA COMPARISON: No previous similar exam is available. FINDINGS: There is no mass or mass effect. There is no hemorrhage or hydrocephalus. There are no extra-axial fluid collections. There are no sites of signal abnormality. No abnormalities of flores matter white matter differentiation are seen. No anatomic abnormalities are identified either. IMPRESSION: NO ACUTE PROCESS. Enrique Oliva MD 07/25/20 [id number] Thank you for allowing us to participate in the care of your patient.
== END 2020-07-25 17:37 | disposition home or self-care (01) ==
LOC: KA.ED 09:26
DX: R42 Dizziness and giddiness (principal); I10 Essential (primary) hypertension; E66.9 Obesity, unspecified; Z68.41 Body mass index [BMI] 40.0-44.9, adult; Z91.048 Other nonmedicinal substance allergy status
CPT/HCPCS: 36415; 70551; 80053; 81001; 83605; 85025; 99284; A9270

== ENCOUNTER 2021-01-21 16:15 | Emergency (ER) | payer MEDICAID ==
--- NOTE | 2021-01-21 16:22 | EDM.PDOC ---
ED HPI GENERAL MEDICAL PROBLEM - General Chief Complaint: Chest Pain Stated Complaint: CHEST PAIN Time Seen by Provider: 01/21/21 16:22 - History of Present Illness INITIAL COMMENTS - FREE TEXT/NARRATIVE: Wallace, 61-year-old male, presents emergency department with epigastric pressure pain lower chest pain with associated breathing restrictions. States is occurred on Wednesday and was intermittent typically after eating getting worse. Today it is been constant and actually worsening throughout the day. States he had a partial can of Coke at noon which may have added to it somewhat. Having Marline cystitis with cholecystectomy he is noted some vertigo since then having undergone Heath maneuver with improvement. Vaccinated with booster for COVID-19. 3 day since regular bowel movement. Urine slightly darker due to not eating/drinking his normal intake. Has no exposures of concern. Denies fever or chills. Onset Date: 01/19/21 Duration: Day(s):, Getting Worse, Intermittent Location: Reports: Chest, Abdomen Improves with: Reports: Rest Worsens with: Reports: Breathing, Movement Context: Reports: Other Associated Symptoms: Reports: No Other Symptoms Upper Epigastric Pain Score (Numeric/FACES): 7 - Related Data Allergies Allergy/AdvReac Type Severity Reaction Status Date / Time pollens Allergy Intermediate Hives Uncoded 01/21/21 17:43 Home Meds: Home Meds Losartan Potassium 75 mg PO DAILY 01/01/19 [History] Omeprazole 40 mg PO DAILY PRN 01/01/19 [History] Aspirin 81 mg PO DAILY 12/28/19 [History] Past Medical History HEENT History: Reports: Impaired Vision Cardiovascular History: Reports: Hypertension Respiratory History: Reports: None Gastrointestinal History: Reports: Cholelithiasis Genitourinary History: Reports: None Musculoskeletal History: Reports: None Neurological History: Reports: Vertigo Psychiatric History: Reports: None Endocrine/Metabolic History: Reports: Obesity/BMI 30+ Hematologic History: Reports: None Immunologic History: Reports: None Oncologic (Cancer) History: Reports: None Dermatologic History: Reports: None - Infectious Disease History Infectious Disease History: Reports: Chicken Pox, Measles - Past Surgical History Head Surgeries/Procedures: Reports: None HEENT Surgical History: Reports: None Cardiovascular Surgical History: Reports: None GI Surgical History: Reports: Appendectomy, Cholecystectomy, Hernia, Abdominal Other GI Surgeries/Procedures: umbilical hernia repair 3/2/17 Male Surgical History: Reports: None Endocrine Surgical History: Reports: None Neurological Surgical History: Reports: None Musculoskeletal Surgical History: Reports: None Dermatological Surgical History: Reports: None Social & Family History - Family History Family Medical History: No Pertinent Family History - Caffeine Use Caffeine Use: Reports: Soda ED ROS GENERAL - Review of Systems Review Of Systems: Comprehensive ROS is negative, except as noted in HPI. ED EXAM, GENERAL - Physical Exam Exam: See Below Free Text/Narrative:: Alert, oriented in mild distress. He is seated with his right arm up resting on his head as he states it makes his breathing easier/less pain. HEENT is negative discharge or deformity with glasses in place PERRLA no icterus no injection. Neck is soft supple with no lymphadenopathy no rigidity noted. Thorax is clear mildly diminished bases likely due to habitus and somewhat restrictive inspiratory cycle with no wheezes nor crackles. Cardiac is S1-S2 I do not appreciate any significant murmur and radial pulse correlates with apical heart rate. Abdomen is rotund soft no hepatosplenomegaly. Mild tenderness in the epigastric region. No tenderness nor rebound tenderness to any other region. Mild pressure sensation in the hepatic region epigastric region and splenic region when palpation occurs. +1 edema to the lower extremities. When seated more upright for auscultation posterior breath sounds he states it seemingly improves the pressure pain sensation in the epigastric lower chest region. He does speak that has been 3 days since a bowel movement. #1 Interpretation EKG Date: 01/21/21 Time: 16:54 Rhythm: NSR Rate (Beats/Min): 76 P-Wave: Present QRS: RBBB ST-T: Normal QT: Normal Comparison: Change From Previous EKG Course - Vital Signs Last Recorded V/S: Last Vital Signs Temp 96.4 F L 01/21/21 16:18 Pulse 84 01/21/21 16:18 Resp 20 01/21/21 16:18 BP 142/90 H 01/21/21 16:18 Pulse Ox 100 01/21/21 16:18 - Orders/Labs/Meds Orders: Active Orders 24 hr Category Date Time Status Peripheral IV Care [RC] . DIRECTED Care 01/21/21 16:29 Active Morphine [Morphine 10 MG/5 ML] Med 01/21/21 19:05 Ordered 5 mg PO Q4H PRN Sodium Chloride 0.9% @ 999 MLS/HR (1000ml) Med 01/21/21 18:27 Ordered Sodium Chloride 0.9% [Normal Saline] 1,000 ml IV .BOLUS Sodium Chloride 0.9% [Normal Saline] 50 ml Med 01/21/21 18:30 Active IV ASDIRECTED Sodium Chloride 0.9% [Saline Flush] Med 01/21/21 16:28 Active 10 ml FLUSH Q8HR PRN Peripheral IV Insertion Adult [OM.PC] Stat Oth 01/21/21 16:28 Ordered EKG 12 Lead [EK] Stat Ther 01/21/21 16:28 Ordered Medication Orders Sodium Chloride (Normal Saline) 1,000 mls @ 999 mls/hr IV .BOLUS ONE Stop: 01/21/21 19:27 Last Admin: 01/21/21 18:35 Dose: 999 mls/hr Documented by: RONI Sodium Chloride (Normal Saline) 50 mls @ 200 mls/min IV ASDIRECTED YFN Last Admin: 01/21/21 18:33 Dose: 200 mls/min Documented by: DELANEY Morphine Sulfate (Morphine Solution 10 Mg/5 Ml Ud Cup) 5 mg PO Q4H PRN PRN Reason: Abdominal Pain Sodium Chloride (Sodium Chloride 0.9% 10 Ml Syringe) 10 ml FLUSH Q8HR PRN PRN Reason: keep vein open Last Admin: 01/21/21 17:13 Dose: 10 ml Documented by: RONI Labs: Laboratory Tests 01/21/21 01/21/21 01/21/21 Range/Units 17:00 17:00 17:00 WBC 10.87 H (5.00-10.00) 10^3/uL RBC 5.11 (4.50-6.00) 10^6/uL Hgb 14.7 (13.0-17.0) g/dL Hct 44.8 (40.0-52.0) % MCV 87.7 (82.0-92.0) fL MCH 28.8 (27.0-31.0) pg MCHC 32.8 (32.0-36.0) g/dL RDW 12.4 (11.5-14.5) % Plt Count 356 (150-400) 10^3/uL MPV 9.5 (7.4-10.4) fL Immature Gran % (Auto) 0.5 (0.0-5.0) % Neut % (Auto) 75.1 H (50.0-70.0) % Lymph % (Auto) 13.9 L (20.0-40.0) % [place] % (Auto) 7.5 (2.0-8.0) % Eos % (Auto) 2.5 (1.0-3.0) % Baso % (Auto) 0.5 (0.0-1.0) % Neut # (Auto) 8.17 H (2.50-7.00) 10^3/uL Lymph # (Auto) 1.51 (1.00-4.00) 10^3/uL [place] # (Auto) 0.82 H (0.10-0.80) 10^3/uL Eos # (Auto) 0.27 (0.10-0.30) 10^3/uL Baso # (Auto) 0.05 (0.00-0.10) 10^3/uL Immature Gran # (Auto) 0.05 (0.00-0.50) 10^3/uL D-Dimer, Quantitative 1360 H (<400) ng/mL Sodium 141 (136-145) mmol/L Potassium 4.1 (3.5-5.1) mmol/L Chloride 102 (98-107) mmol/L Carbon Dioxide 27.3 (21.0-32.0) mmol/L Anion Gap 15.8 H (5-15) mmol/L BUN 16 (7-18) mg/dL Creatinine 1.20 H (0.51-1.17) mg/dL Est Cr Clr Drug Dosing 63.01 mL/min Estimated GFR (MDRD) > 60 mL/min Glucose 112 (70-140) mg/dL Calcium 9.2 (8.7-10.3) mg/dL Total Bilirubin 2.9 H (0.2-1.0) mg/dL AST 415 H (15-37) U/L ALT 458 H (14-63) U/L Alkaline Phosphatase 290 H (46-116) U/L Troponin I High Sens 5.200 (0-76.000) pg/mL Total Protein 7.8 (6.4-8.2) g/dL Albumin 3.49 (3.40-5.00) g/dL Amylase 54 (25-125) U/L Lipase 194 (73-393) U/L Meds: Medications Generic Name Dose Route Start Last Admin Trade Name Freq PRN Reason Stop Dose Admin Sodium Chloride 1,000 mls @ 999 mls/hr 01/21/21 18:27 01/21/21 18:35 Normal Saline IV 01/21/21 19:27 999 mls/hr .BOLUS ONE Administration Sodium Chloride 50 mls @ 200 mls/min 01/21/21 18:30 01/21/21 18:33 Normal Saline IV 200 mls/min ASDIRECTED YFN Administration Morphine Sulfate 5 mg 01/21/21 19:05 Morphine Solution 10 Mg/5 Ml Ud Cup PO Q4H PRN Abdominal Pain Sodium Chloride 10 ml 01/21/21 16:28 01/21/21 17:13 Sodium Chloride 0.9% 10 Ml Syringe FLUSH 10 ml Q8HR PRN Administration keep vein open Discontinued Medications Generic Name Dose Route Start Last Admin Trade Name Freq PRN Reason Stop Dose Admin Al Hydroxide/Mg Hydroxide 30 0 ml 01/21/21 17:06 01/21/21 17:10 ml/ Lidocaine HCl 15 ml PO 01/21/21 17:07 45 ml ONETIME ONE Administration Sodium Chloride 1,000 mls @ 999 mls/hr 01/21/21 16:31 01/21/21 17:05 Normal Saline IV 01/21/21 17:31 999 mls/hr .BOLUS ONE Administration Iopamidol 75 ml 01/21/21 18:29 01/21/21 18:33 Iopamidol 755 Mg/Ml 75 Ml Bottle IVPUSH 01/21/21 18:30 75 ml ONETIME ONE Administration Morphine Sulfate 1 mg 01/21/21 19:03 01/21/21 19:11 Morphine 2 Mg/Ml Syringe IVPUSH 01/21/21 19:04 1 mg ONETIME ONE Administration Departure - Departure Time of Disposition: 19:11 Disposition: Home, Self-Care 01 Condition: Good Clinical Impression: Elevated d-dimer, Elevated liver enzymes, Epigastric abdominal pain, Abdominal pain - Discharge Information *PRESCRIPTION DRUG MONITORING PROGRAM REVIEWED*: Not Applicable *COPY OF PRESCRIPTION DRUG MONITORING REPORT IN PATIENT CLIFF: Not Applicable Instructions: Abdominal Pain, Adult, [id number] Referrals: Hack,Connie, PA-C [Primary Care Provider] - Ralph Toribio MD [Physician] - Forms: ED Department Discharge Additional Instructions: Your elevated D-dimer was the reason we did the scan of the chest ruling out pulmonary embolus. No evidence of pulmonary emboli was seen. There was no mass or adenopathy of the chest. Your great vessels are intact. There are no adrenal mass present. Minimal bibasilar discoid atelectasis was noted. Your liver enzymes are elevated significantly since your pre-gallbladder work- up. The liver enzymes may be affecting the elevation of your D-dimer. You need to call your clinic in the morning to see if they can schedule an ultrasound to be performed so it would be done prior to your appointment that is already scheduled for 1 PM. Do not eat in the morning until they know when your ultrasound would be performed as the test prefer n.p.o. to reduce the gas interference when doing that examination. Consideration for any EGD should be given secondary of your epigastric discomfort and history of using your proton pump inhibitor. You need to drink more fluids as your kidney number/creatinine was slightly elevated tonight. You did receive 2 L of IV fluid to help improve that. You were given morphine sulfate here in your IV prior to leaving and were also discharged with a 10 mg in 5 male cup of which you can take one half of that, 2.5 mL by syringe in your mouth every 4-6 hours as needed to get you through the night. Avoid Tylenol and Tylenol products as well as any alcohol or other liver metabolized medications until your follow-up has been completed. Follow-up as scheduled, return to the emergency department as needed outside clinic hours. Sepsis Event Note (ED) - Focused Exam Vital Signs: Vital Signs Temp Pulse Resp BP Pulse Ox 01/21/21 16:18 96.4 F L 84 20 142/90 H 100 - Problem List & Annotations (1) Epigastric abdominal pain SNOMED Code(s): 08587236 Code(s): R10.13 - EPIGASTRIC PAIN Status: Acute Priority: High Current Visit: Yes (2) Elevated liver enzymes SNOMED Code(s): 191916441 Code(s): R74.8 - ABNORMAL LEVELS OF OTHER SERUM ENZYMES Status: Acute Priority: High Current Visit: Yes (3) Elevated d-dimer SNOMED Code(s): 588173348 Code(s): R79.89 - OTHER SPECIFIED ABNORMAL FINDINGS OF BLOOD CHEMISTRY Status: Acute Priority: High Current Visit: Yes (4) Abdominal pain SNOMED Code(s): 34609011 Code(s): R10.9 - UNSPECIFIED ABDOMINAL PAIN Status: Acute Current Visit: Yes Qualifiers: Abdominal location: epigastric Qualified Code(s): R10.13 - Epigastric pain - Problem List Review Problem List Initiated/Reviewed/Updated: Yes - My Orders Last 24 Hours: My Active Orders 01/21/21 16:28 Sodium Chloride 0.9% [Saline Flush] 10 ml FLUSH Q8HR PRN Peripheral IV Insertion Adult [OM.PC] Stat EKG 12 Lead [EK] Stat 01/21/21 16:29 Peripheral IV Care [RC] . DIRECTED 01/21/21 18:27 Sodium Chloride 0.9% @ 999 MLS/HR (1000ml) Sodium Chloride 0.9% [Normal Saline] 1,000 ml IV .BOLUS 01/21/21 18:30 Sodium Chloride 0.9% [Normal Saline] 50 ml IV ASDIRECTED 01/21/21 19:05 Morphine [Morphine 10 MG/5 ML] 5 mg PO Q4H PRN - Assessment/Plan Last 24 Hours: My Active Orders 01/21/21 16:28 Sodium Chloride 0.9% [Saline Flush] 10 ml FLUSH Q8HR PRN Peripheral IV Insertion Adult [OM.PC] Stat EKG 12 Lead [EK] Stat 01/21/21 16:29 Peripheral IV Care [RC] . DIRECTED 01/21/21 18:27 Sodium Chloride 0.9% @ 999 MLS/HR (1000ml) Sodium Chloride 0.9% [Normal Saline] 1,000 ml IV .BOLUS 01/21/21 18:30 Sodium Chloride 0.9% [Normal Saline] 50 ml IV ASDIRECTED 01/21/21 19:05 Morphine [Morphine 10 MG/5 ML] 5 mg PO Q4H PRN Plan: Your elevated D-dimer was the reason we did the scan of the chest ruling out pulmonary embolus. No evidence of pulmonary emboli was seen. There was no mass or adenopathy of the chest. Your great vessels are intact. There are no adrenal mass present. Minimal bibasilar discoid atelectasis was noted. Your liver enzymes are elevated significantly since your pre-gallbladder work- up. The liver enzymes may be affecting the elevation of your D-dimer. You need to call your clinic in the morning to see if they can schedule an ultrasound to be performed so it would be done prior to your appointment that is already scheduled for 1 PM. Do not eat in the morning until they know when your ultrasound would be performed as the test prefer n.p.o. to reduce the gas interference when doing that examination. Consideration for any EGD should be given secondary of your epigastric discomfort and history of using your proton pump inhibitor. You need to drink more fluids as your kidney number/creatinine was slightly elevated tonight. You did receive 2 L of IV fluid to help improve that. You were given morphine sulfate here in your IV prior to leaving and were also discharged with a 10 mg in 5 male cup of which you can take one half of that, 2.5 mL by syringe in your mouth every 4-6 hours as needed to get you through the night. Avoid Tylenol and Tylenol products as well as any alcohol or other liver metabolized medications until your follow-up has been completed. Follow-up as scheduled, return to the emergency department as needed outside clinic hours.
[2021-01-21 16:26] VITALS: BP 142/90; PULSE 84
[2021-01-21] MEDS ORDERED: Sodium Chloride 0.9% 10 ML Syringe FLUSH PRN (16:28)
[2021-01-21] MEDS ORDERED: Sodium Chloride 0.9% 1,000 ML IV ONE ×2 (16:31→18:27)
[2021-01-21] MEDS ORDERED: Alum Hydrox/Mag Hydrox/Simeth 30 ML, Lidocaine 2% 15 ML PO ONE ×2 (17:06)
--- NOTE | 2021-01-21 17:17 | CR ---
[id number] RAD/RAD Abd Flat and Upright 2V Exam: RAD Abd Flat and Upright 2V Clinical Data: ABDOMINAL PAIN COMPARISON: CORRELATION IS MADE WITH THE CAT SCAN OF DECEMBER 30, 2019 FINDINGS: There is no bowel obstruction There is no organomegaly There are no pathologic calcifications IMPRESSION: NO ACUTE PLAIN FILM ABNORMALITY Enrique Oliva MD 01/21/21 [id number] Thank you for allowing us to participate in the care of your patient.
--- NOTE | 2021-01-21 17:19 | CR ---
[id number] RAD/RAD Chest PA And Lateral EXAM: RAD Chest PA And Lateral CLINICAL DATA: CHEST PAIN COMPARISON: CORRELATION IS MADE WITH DECEMBER 28, 2019 FINDINGS: The lungs are clear. The cardiomediastinal contour is prominent but stable. The regional bones and soft tissues are unremarkable. IMPRESSION: NO ACUTE PROCESS. Enrique Oliva MD 01/21/21 [id number] Thank you for allowing us to participate in the care of your patient.
[2021-01-21 17:33] LABS: ANION GAP 15.8 mmol/L (5-15); CHLORIDE,CL 102 mmol/L (98-107); SODIUM,NA 141 mmol/L (136-145)
[2021-01-21] MEDS ORDERED: Iopamidol 755 Mg/ML 75 ML Bottle IVPUSH ONE (18:29)
[2021-01-21] MEDS ORDERED: Sodium Chloride 0.9% 50 ML IV SCH (18:30)
--- NOTE | 2021-01-21 18:54 | CT ---
[id number] CT/CTA Chest Exam: CTA Chest Clinical Data: ELEVATED D-DIMER COMPARISON: CORRELATION IS MADE WITH DECEMBER 30, 2019 FINDINGS: There are no pulmonary emboli. There is no mediastinal mass or adenopathy. The great vessels appear to be intact There is no adrenal mass There is minimal bibasilar discoid atelectasis IMPRESSION: NO PULMONARY EMBOLI Enrique Oliva MD 01/21/21 [id number] Thank you for allowing us to participate in the care of your patient.
[2021-01-21] MEDS ORDERED: Morphine 2 MG/ML SYRINGE IVPUSH ONE (19:03)
[2021-01-21] MEDS ORDERED: Morphine Solution 10 MG/5 ML UD Cup PO PRN (19:05)
== END 2021-01-21 19:38 | disposition home or self-care (01) ==
LOC: KA.ED 16:15
DX: R10.13 Epigastric pain (principal); R74.8 Abnormal levels of other serum enzymes; R79.89 Other specified abnormal findings of blood chemistry; I10 Essential (primary) hypertension; E66.9 Obesity, unspecified; Z68.41 Body mass index [BMI] 40.0-44.9, adult; Z91.09 Other allergy status, other than to drugs and biological substances; Z79.82 Long term (current) use of aspirin; Z79.899 Other long term (current) drug therapy
CPT/HCPCS: 36415; 71046; 71275; 74021; 80053; 82150; 83690; 84484; 85025; 85379; 93010; 96374; 99284; 99285-25; A9270-GY; J2270; J7030; Q9967

== ENCOUNTER 2021-05-02 11:09 | Emergency (ER) | payer MEDICAID ==
[2021-05-02 12:22] LABS: ANION GAP 13.6 mmol/L (5-15); CHLORIDE,CL 101 mmol/L (98-107); SODIUM,NA 138 mmol/L (136-145)
[2021-05-02 12:31] VITALS: BP 117/69; PULSE 100
== END 2021-05-02 13:40 | disposition home or self-care (01) ==
LOC: KA.ED 11:09
DX: R10.13 Epigastric pain (principal); R74.8 Abnormal levels of other serum enzymes; I10 Essential (primary) hypertension; E66.9 Obesity, unspecified; Z68.30 Body mass index [BMI] 30.0-30.9, adult; Z91.048 Other nonmedicinal substance allergy status; Z79.899 Other long term (current) drug therapy; Z79.82 Long term (current) use of aspirin
CPT/HCPCS: 36415; 71045; 80053; 83605; 84484; 85025; 85379; 93005; 93010; 99284; 99285-25

== ENCOUNTER 2022-11-10 07:42 | Day surgery (SDC) | payer MEDICAID ==
[2022-11-10] MEDS ORDERED: Lactated Ringers 1,000 ML IV SCH (08:00)
[2022-11-10] MEDS ORDERED: Sodium Chloride 0.9% 10 ML Syringe FLUSH PRN (08:00)
[2022-11-10] MEDS ORDERED: Midazolam 1 MG/ML 2 ML SDV ONE (08:36)
[2022-11-10] MEDS ORDERED: Propofol 200 MG/20 ML SDV ONE (08:37)
[2022-11-10 10:56] VITALS: BP 105/77; PULSE 74
== END 2022-11-10 11:16 | disposition home or self-care (01) ==
LOC: KA.SDS 07:42
PROVIDERS: ATTEND Family Medicine
DX: Z12.11 Encounter for screening for malignant neoplasm of colon (principal); D12.4 Benign neoplasm of descending colon; K64.8 Other hemorrhoids; K21.9 Gastro-esophageal reflux disease without esophagitis; E78.5 Hyperlipidemia, unspecified; I10 Essential (primary) hypertension; E66.9 Obesity, unspecified; Z79.82 Long term (current) use of aspirin; Z79.899 Other long term (current) drug therapy; Z68.39 Body mass index [BMI] 39.0-39.9, adult
CPT/HCPCS: 00812; J2250; J2704; J7120

== ENCOUNTER 2024-07-19 10:07 | Emergency (ER) | payer MEDICARE ==
[2024-07-19] MEDS ORDERED: Sodium Chloride 0.9% 10 ML Syringe FLUSH PRN (10:22)
[2024-07-19 10:35] LABS: BASOPHILS ABSOLUTE AUTO 0.03 10^3/uL (0.00-0.10); BASOPHILS PERCENT AUTO 0.3 % (0.0-1.0); EOSINOPHILS ABSOLUTE AUTO 0.13 10^3/uL (0.10-0.30); EOSINOPHILS PERCENT AUTO 1.1 % (1.0-3.0); HEMATOCRIT 45.4 % (40.0-52.0); HEMOGLOBIN 15.1 g/dL (13.0-17.0); IMMATURE GRAN ABSOLUTE AUTO 0.04 10^3/uL (0.00-0.04); IMMATURE GRAN PERCENT AUTO 0.3 % (0.0-0.4); LYMPHOCYTES ABSOLUTE AUTO 1.75 10^3/uL (1.00-4.00); LYMPHOCYTES PERCENT AUTO 15.3 % (20.0-40.0); MEAN CORPUSCULAR HEMOGLOBIN 28.7 pg (27.0-31.0); MEAN CORPUSCULAR HGB CONC 33.3 g/dL (32.0-36.0); MEAN CORPUSCULAR VOLUME 86.3 fL (82.0-92.0); MEAN PLATELET VOLUME 9.6 fL (7.4-10.4); MONOCYTES ABSOLUTE AUTO 0.44 10^3/uL (0.10-0.80); MONOCYTES PERCENT AUTO 3.8 % (2.0-8.0); NEUTROPHILS ABSOLUTE AUTO 9.04 10^3/uL (2.50-7.00); NEUTROPHILS PERCENT AUTO 79.2 % (50.0-70.0); PLATELET COUNT,PLT 352 10^3/uL (150-400); RED BLOOD CELL COUNT 5.26 10^6/uL (4.50-6.00); RED CELL DISTRIBUTION WIDTH 12.2 % (11.5-14.5); WHITE BLOOD CELL COUNT,WBC 11.43 10^3/uL (5.00-10.00)
[2024-07-19 10:37] VITALS: PULSE 80
[2024-07-19 10:45] LABS: ALBUMIN 3.74 g/dL (3.40-5.00); ANION GAP 15.5 mmol/L (5-15); BILIRUBIN TOTAL 0.7 mg/dL (0.2-1.0); CALCIUM 9.6 mg/dL (8.7-10.3); CARBON DIOXIDE,CO2 25.4 mmol/L (21.0-32.0); CREATININE 1.1 mg/dL (0.51-1.17); EST CRCL DRUG DOSING (CG) 66.06 mL/min; POTASSIUM,K 3.9 mmol/L (3.5-5.1); PROTEIN TOTAL,TP 7.5 g/dL (6.4-8.2)
[2024-07-19 11:16] VITALS: BP 112/74
== END 2024-07-19 11:29 | disposition home or self-care (01) ==
LOC: KA.ED 10:12
DX: R07.2 Precordial pain (principal); E78.00 Pure hypercholesterolemia, unspecified; E66.9 Obesity, unspecified; Z91.048 Other nonmedicinal substance allergy status; Z79.82 Long term (current) use of aspirin; Z79.899 Other long term (current) drug therapy; Z68.36 Body mass index [BMI] 36.0-36.9, adult; Z90.49 Acquired absence of other specified parts of digestive tract
CPT/HCPCS: 36415; 71045; 80053; 83880; 84484; 85025; 85379; 93010; 99284; 99285